=== PATIENT | male | born 1965 | race Caucasian/White ===

== ENCOUNTER 2020-05-04 09:25 | Inpatient (IN) ==
[2020-05-04] MEDS ORDERED: SODIUM CHLORIDE 0.9% 1000ML 1,000 ML IV STA (09:35)
[2020-05-04] MEDS ORDERED: PANTOPRAZOLE BOLUS/DRIP 1 EA IV STA (09:44)
[2020-05-04] MEDS ORDERED: PANTOprazole 80 MG in DEXTROSE 5% 100 ML IV ONE (09:44)
[2020-05-04] MEDS ORDERED: FAMOTIDINE 20MG IV PUSH 20 MG/5 ML SYR IV STA (09:44)
--- NOTE | 2020-05-04 09:44 | Emergency Department Note ---
Impression & Plan Gastrointestinal bleeding, upper ED Provider Note INFORMANT: Patient ED PROVIDER(S): Rey Mabry MD CHIEF COMPLAINT: Vomiting blood PLAN: Disposition: Admitted Condition: Good MEDICAL DECISION MAKING: Patient presented complaining of acute hematemesis. IV was established. He was hydrated. He was started on IV Pepcid and Protonix. Patient was also given Dilaudid and Zofran for pain. He felt much better on reassessment. Blood work reveals a slight anemia on CBC. Chemistry panel reveals mild elevation of BUN. The patient underwent CT imaging and this revealed mild hyperemia at the GE junction. No perforations or obstruction noted. Advancing cancer noted. I did discuss this with the patient. He will need further management in the hospital. Consultation was made with [facility] GI as well as [facility] internal medicine. The patient was evaluated in the ER and admitted. Triage Nursing notes reviewed and agree them. Additional history obtained from patient's Vital Signs: reviewed and remarkable for no significant abnormalities Differential diagnosis: Tameka-Gabriel tear, esophagitis, peptic ulcer disease, variceal bleed, gastritis, Diverticulosis, AVM, coagulopathy, colitis, inflammatory bowel disease, malignancy, epistaxis, fissure, hemorrhoids, as well as other pathologies. Diagnostics interpreted by me: ECG: Twelve-lead ECG reveals a normal sinus rhythm at 73 bpm. There is a RSR prime pattern present. No ST elevation or depression. No PACs or PVCs. Normal axis and QRS duration. Cardiac Monitoring: Cardiac monitoring ordered by me: The patient was placed on continuous cardiac monitoring and observed. It revealed a normal sinus rhythm at 70 beats per minute without ectopy or evidence of dysrhythmia. Imaging studies: CT scan of the abdomen pelvis as noted above. I refer you to the EMR for f urther details. Consultation(s): [facility] hospitalist service. The patient will be admitted by . [facility] gastroenterology. Patient was evaluated in the ER by NAHOMI Dwyer HPI: The patient is a 55 year old male who presents to the Emergency Room with complaints of vomiting blood. This started 4 days ago and is worsening. Called PCP and directed to ER. The patient also notes the following associated symptoms, nausea, upper abdominal pain. The patient has found no relieving factors. Current pain is rated as 8/10. Pt denies LOC, headache, fevers, chills, diaphoresis, visual changes, neck pain, chest pain, breathing difficulties, back pain, melena, hematochezia, urinary symptoms, numbness, weakness, lymphadenopathy, rash, or other complaints. ROS: See above HPI for pertinent positives & negatives. A total of 10 systems reviewed and were otherwise negative. PAST MEDICAL HISTORY:See Below, esophageal cancer PAST SURGICAL HISTORY:See Below, mediport FAMILY HISTORY:See Below SOCIAL HISTORY:See Below, HOME MEDICATIONS:See Below ALLERGIES:See Below VITALS:See Below PHYSICAL EXAMINATION: GENERAL: Awake, alert, well-appearing, in no distress HENT: Normocephalic, atraumatic. Oropharynx unremarkable. EYES: Normal conjunctiva. Sclera non-icteric. NECK: Inspection normal. Non-tender. Supple. No nuchal rigidity. FROM. No masses. RESPIRATORY: Clear to auscultation. No wheezes. No rales. Normal respiratory effort. CARDIAC: Normal rate. Normal rhythm. No murmurs. No rubs. Extremities warm and well perfused. Pulses equal. No JVD. GI: Soft, non-distended. Epigastric tenderness to palpation. No rebound or guarding. No masses. RECTAL: Deferred. MUSCULOSKELETAL: Atraumatic. Chest examination reveals no tenderness, mediport in Right upper. The back is symmetrical on inspection without obvious abnormality. There is no CVA tenderness to palpation. No joint edema. LOWER EXTREMITIES: Calves are equal size bilaterally and non-tender. No edema. No discoloration. NEURO: Normal sensorium. No sensory or motor deficits noted. SKIN: No rash or jaundice noted. 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 Surgical History History of inguinal hernia repair Family History Other Alzheimer disease Social History Hx Alcohol Use: Yes Hx Substance Use: Yes Feels Safe at Home: Yes Allergies Allergies Allergy/AdvReac Type Severity Reaction Status Date / Time No Known Allergies Allergy Unverified 05/04/20 10:37 Home Meds Home Medications Medication Instructions Recorded Confirmed No Known Home Medications 05/04/20 05/04/20 Results & Data (ED) Vital Signs Vital Signs - 24 hr 05/04/20 09:30 05/04/20 09:44 05/04/20 09:55 Temperature 36.7 C Temperature Source Oral Pulse Rate 96 H 73 79 Pulse Rate [Left] 76 Pulse Rate from SpO2 Sensor 76 Pulse Rhythm Regular Respiratory Rate 18 24 15 Respiratory Effort / Characteristics Non-Labored Non-Labored Spontaneous Respiratory Depth Normal Normal Respiratory Pattern Regular Blood Pressure 127/75 104/81 Blood Pressure [Right Arm] 104/81 Blood Pressure Mean 92 85 Blood Pressure Mean [Right Arm] 88 Blood Pressure Position Sitting Blood Pressure Position [Right Arm] Lying Pulse Oximetry 99 98 Oxygen Delivery Method Room Air Room Air Sepsis Recent Fever Within 48 Hours No Sepsis New/Unexplained Change in Mental Status No Sepsis Action Taken by Nursing No Action Required 05/04/20 10:00 05/04/20 10:30 05/04/20 10:53 Temperature Temperature Source Pulse Rate 71 63 Pulse Rate [Left] 64 Pulse Rate from SpO2 Sensor 71 62 Pulse Rhythm Respiratory Rate 17 17 16 Respiratory Effort / Characteristics Non-Labored Spontaneous Respiratory Depth Normal Respiratory Pattern Blood Pressure Blood Pressure [Right Arm] 113/78 Blood Pressure Mean Blood Pressure Mean [Right Arm] 89 Blood Pressure Position Blood Pressure Position [Right Arm] Lying Pulse Oximetry 99 95 95 Oxygen Delivery Method Room Air Sepsis Recent Fever Within 48 Hours Sepsis New/Unexplained Change in Mental Status Sepsis Action Taken by Nursing 05/04/20 10:54 05/04/20 11:07 05/04/20 11:30 Temperature Temperature Source Pulse Rate 63 74 59 L Pulse Rate [Left] Pulse Rate from SpO2 Sensor 63 73 59 L Pulse Rhythm Respiratory Rate 15 16 15 Respiratory Effort / Characteristics Respiratory Depth Respiratory Pattern Blood Pressure 113/78 Blood Pressure [Right Arm] Blood Pressure Mean 82 Blood Pressure Mean [Right Arm] Blood Pressure Position Blood Pressure Position [Right Arm] Pulse Oximetry 98 99 97 Oxygen Delivery Method Sepsis Recent Fever Within 48 Hours Sepsis New/Unexplained Change in Mental Status Sepsis Action Taken by Nursing 05/04/20 12:00 05/04/20 12:30 05/04/20 13:00 Temperature Temperature Source Pulse Rate 60 60 72 Pulse Rate [Left] Pulse Rate from SpO2 Sensor 59 L 59 L 69 Pulse Rhythm Respiratory Rate 16 15 12 Respiratory Effort / Characteristics Respiratory Depth Respiratory Pattern Blood Pressure Blood Pressure [Right Arm] Blood Pressure Mean Blood Pressure Mean [Right Arm] Blood Pressure Position Blood Pressure Position [Right Arm] Pulse Oximetry 99 98 99 Oxygen Delivery Method Sepsis Recent Fever Within 48 Hours Sepsis New/Unexplained Change in Mental Status Sepsis Action Taken by Nursing 05/04/20 13:08 05/04/20 13:30 05/04/20 14:00 Temperature Temperature Source Pulse Rate 63 73 73 Pulse Rate [Left] Pulse Rate from SpO2 Sensor 63 73 74 Pulse Rhythm Respiratory Rate 13 13 15 Respiratory Effort / Characteristics Respiratory Depth Respiratory Pattern Blood Pressure 117/87 101/78 104/77 Blood Pressure [Right Arm] Blood Pressure Mean 93 87 90 Blood Pressure Mean [Right Arm] Blood Pressure Position Blood Pressure Position [Right Arm] Pulse Oximetry 100 99 98 Oxygen Delivery Method Room Air Room Air Sepsis Recent Fever Within 48 Hours Sepsis New/Unexplained Change in Mental Status Sepsis Action Taken by Nursing 05/04/20 14:30 05/04/20 15:00 05/04/20 15:30 Temperature Temperature Source Pulse Rate 59 L 60 61 Pulse Rate [Left] Pulse Rate from SpO2 Sensor 60 61 61 Pulse Rhythm Respiratory Rate 14 15 13 Respiratory Effort / Characteristics Respiratory Depth Respiratory Pattern Blood Pressure 116/79 108/77 Blood Pressure [Right Arm] Blood Pressure Mean 83 81 Blood Pressure Mean [Right Arm] Blood Pressure Position Blood Pressure Position [Right Arm] Pulse Oximetry 97 97 98 Oxygen Delivery Method Sepsis Recent Fever Within 48 Hours Sepsis New/Unexplained Change in Mental Status Sepsis Action Taken by Nursing Laboratory Data Result diagrams: 05/04/20 09:40 05/04/20 09:40 Lab Results 05/04/20 05/04/20 05/04/20 Range/Units 09:40 09:40 09:40 WBC 6.03 (4.8-10.8) K/uL RBC 4.05 L (4.7-6.1) M/uL Hgb 12.6 L (14.0-18.0) g/dL Hct 36.0 L (42-52) % MCV 88.9 (80-100) fL MCH 31.1 (25-34) pg MCHC 35.0 (32-36) g/dL RDW Std Deviation 45.0 (36.4-46.3) fL RDW Coeff of Amy 13.7 (11.5-14.5) % Plt Count 260 (130-400) K/uL MPV 9.3 (7.4-10.4) fL Immature Gran % (Auto) 0.2 % Neut % (Auto) 64.9 % Lymph % (Auto) 21.7 % [place] % (Auto) 11.8 % Eos % (Auto) 0.7 % Baso % (Auto) 0.7 % Neut # (Auto) 3.92 (1.4-6.5) K/uL Lymph # (Auto) 1.31 (1.2-3.4) K/uL [place] # (Auto) 0.71 H (0.11-0.59) K/uL Eos # (Auto) 0.04 (0-0.5) K/uL Baso # (Auto) 0.04 (0-0.2) K/uL Immature Gran # (Auto) 0.01 (0.00-0.02) K/uL PT 11.4 (9.0-12.0) Seconds INR 1.1 (0.9-1.1) APTT 29.1 (21.0-31.0) Seconds PTT Ratio 1.0 Sodium (136-145) mmol/L Potassium (3.5-5.1) mmol/L Chloride (98-107) mmol/L Carbon Dioxide (21-32) mmol/L Anion Gap (3-11) BUN (7-18) mg/dl Creatinine (0.6-1.4) mg/dl Est Cr Clr Drug Dosing Est GFR ( Amer) Est GFR (Non-Af Amer) BUN/Creatinine Ratio (10-20) Glucose (70-99) mg/dl Calcium (8.5-10.1) mg/dl Total Bilirubin (0.2-1) mg/dl AST (15-37) U/L ALT (12-78) U/L Alkaline Phosphatase (45-117) U/L Total Protein (6.4-8.2) gm/dl Albumin (3.4-5.0) gm/dl Globulin (2.5-4.0) gm/dl Albumin/Globulin Ratio (0.9-2) Blood Type O Positive Antibody Screen NEGATIVE 05/04/20 Range/Units 09:40 WBC (4.8-10.8) K/uL RBC (4.7-6.1) M/uL Hgb (14.0-18.0) g/dL Hct (42-52) % MCV (80-100) fL MCH (25-34) pg MCHC (32-36) g/dL RDW Std Deviation (36.4-46.3) fL RDW Coeff of Amy (11.5-14.5) % Plt Count (130-400) K/uL MPV (7.4-10.4) fL Immature Gran % (Auto) % Neut % (Auto) % Lymph % (Auto) % [place] % (Auto) % Eos % (Auto) % Baso % (Auto) % Neut # (Auto) (1.4-6.5) K/uL Lymph # (Auto) (1.2-3.4) K/uL [place] # (Auto) (0.11-0.59) K/uL Eos # (Auto) (0-0.5) K/uL Baso # (Auto) (0-0.2) K/uL Immature Gran # (Auto) (0.00-0.02) K/uL PT (9.0-12.0) Seconds INR (0.9-1.1) APTT (21.0-31.0) Seconds PTT Ratio Sodium 138 (136-145) mmol/L Potassium 3.7 (3.5-5.1) mmol/L Chloride 104 (98-107) mmol/L Carbon Dioxide 26 (21-32) mmol/L Anion Gap 9.0 (3-11) BUN 22 H (7-18) mg/dl Creatinine 0.99 (0.6-1.4) mg/dl Est Cr Clr Drug Dosing Not Reportable Est GFR ( Amer) 99.0 Est GFR (Non-Af Amer) 85.4 BUN/Creatinine Ratio 22.4 H (10-20) Glucose 100 H (70-99) mg/dl Calcium 9.1 (8.5-10.1) mg/dl Total Bilirubin 1.4 H (0.2-1) mg/dl AST 15 (15-37) U/L ALT 19 (12-78) U/L Alkaline Phosphatase 45 (45-117) U/L Total Protein 7.0 (6.4-8.2) gm/dl Albumin 3.8 (3.4-5.0) gm/dl Globulin 3.2 (2.5-4.0) gm/dl Albumin/Globulin Ratio 1.2 (0.9-2) Blood Type Antibody Screen Administered Medications Hydromorphone HCl (Hydromorphone Inj 0.5 Mg/0.5 Ml Syr) 0.5 mg IV Q15M PRN PRN Reason: Pain Stop: 05/18/20 09:44 Last Admin: 05/04/20 13:37 Dose: 0.5 mg Documented by: [id number] Admin: 05/04/20 09:53 Dose: 0.5 mg Documented by: [id number] Sodium Chloride (Nss 1000ml) 1,000 mls @ 125 mls/hr IV .Q8H STA Stop: 05/04/20 17:34 Last Admin: 05/04/20 09:53 Dose: 125 mls/hr Documented by: [id number] Pantoprazole Sodium 40 mg/ (Dextrose) 100 mls @ 20 mls/hr IV Q5H JUAN Stop: 06/03/20 09:59 Last Admin: 05/04/20 10:32 Dose: 8 mg/hr, 20 mls/hr Documented by: [id number] Discontinued Medications Sodium Chloride (Nss) 500 mls @ 999 mls/hr IV .Q31M JUAN Stop: 05/04/20 10:15 Last Infusion: 05/04/20 10:32 Dose: 0 mls/hr Documented by: [id number] Admin: 05/04/20 09:53 Dose: 999 mls/hr Documented by: [id number] Famotidine (Pepcid 20mg Iv Push) 20 mg in 5 mls @ 2.5 mls/min IV NOW STA Stop: 05/04/20 09:45 Last Admin: 05/04/20 09:53 Dose: 2.5 mls/min Documented by: [id number] Pantoprazole Sodium (Protonix Bolus/Drip) 0 mls @ 1 mls/hr IV ONE STA Stop: 05/04/20 09:45 Last Admin: 05/04/20 10:32 Dose: 1 mls/hr Documented by: [id number] Pantoprazole Sodium 80 mg/ (Dextrose) 120 mls @ 400 mls/hr IV NOW ONE Stop: 05/04/20 10:01 Last Infusion: 05/04/20 10:32 Dose: 0 mls/hr Documented by: [id number] Admin: 05/04/20 10:09 Dose: 400 mls/hr Documented by: [id number] Ioversol (Ioversol 100ml) 93 ml IV ONCE ONE Stop: 05/04/20 11:01 Last Admin: 05/04/20 11:02 Dose: 93 ml Documented by: [id number] Ondansetron HCl (Ondansetron Inj 2 Mg/Ml 2 Ml Vial) 4 mg IV NOW STA Stop: 05/04/20 09:46 Last Admin: 05/04/20 09:53 Dose: 4 mg Documented by: [id number] Discharge Plan Visit Data Chief Complaint: Vomiting Stated Complaint: VOMITING ED Provider: Rey Mabry Discharge Problem: Gastrointestinal bleeding, upper Patient Disposition: Admitted As Inpatient Discharge Instructions Interventions: ED Discharge Assessment Last Done: 05/04/20 15:32
[2020-05-04] MEDS ORDERED: ONDANSETRON INJ 2 MG/ML 2 ML VIAL IV STA (09:45)
[2020-05-04] MEDS ORDERED: SODIUM CHLORIDE 0.9% 500 ML IV SCH (09:45)
[2020-05-04] MEDS: HYDROmorphone INJ 0.5 MG/0.5 ML SYR IV PRN ×4 (09:53→23:13)
[2020-05-04 09:57] LABS: Basophils # (auto) 0.04 K/uL (0-0.2); Basophils % (auto) 0.7 %; Eosinophils # (auto) 0.04 K/uL (0-0.5); Eosinophils % (auto) 0.7 %; Hemoglobin 12.6 g/dL (14.0-18.0); Immature Granulocytes # (auto) 0.01 K/uL (0.00-0.02); Immature Granulocytes % (auto) 0.2 %; Lymphocytes # (auto) 1.31 K/uL (1.2-3.4); Lymphocytes % (auto) 21.7 %; Mean Corpuscular Hemoglobin 31.1 pg (25-34); Mean Corpuscular Volume 88.9 fL (80-100); Mean Platelet Volume 9.3 fL (7.4-10.4); Monocytes # (auto) 0.71 K/uL (0.11-0.59); Monocytes % (auto) 11.8 %; Neutrophils # (auto) 3.92 K/uL (1.4-6.5); Neutrophils % (auto) 64.9 %; Platelet Count 260 K/uL (130-400); RDW Coefficient of Variation 13.7 % (11.5-14.5); Red Blood Count 4.05 M/uL (4.7-6.1); White Blood Count 6.03 K/uL (4.8-10.8)
[2020-05-04 10:10] LABS: INR 1.1 (0.9-1.1); Partial Thromboplastin Time 29.1 Seconds (21.0-31.0); Prothrombin Time 11.4 Seconds (9.0-12.0)
[2020-05-04 10:27] LABS: Alanine Aminotransferase 19 U/L (12-78); Albumin Level 3.8 gm/dl (3.4-5.0); Aspartate Aminotransferase 15 U/L (15-37); BUN Creatinine Ratio 22.4 (10-20); Blood Urea Nitrogen 22 mg/dl (7-18); Calcium 9.1 mg/dl (8.5-10.1); Carbon Dioxide 26 mmol/L (21-32); Chloride 104 mmol/L (98-107); Est GFR (Non-African American) 85.4; Glucose 100 mg/dl (70-99); Potassium 3.7 mmol/L (3.5-5.1); Sodium 138 mmol/L (136-145)
[2020-05-04 10:30] LABS: Albumin Globulin Ratio 1.2 (0.9-2); Alkaline Phosphatase 45 U/L (45-117); Bilirubin,Total 1.4 mg/dl (0.2-1); Globulin 3.2 gm/dl (2.5-4.0)
[2020-05-04] MEDS: PANTOprazole 40 MG in DEXTROSE 5% 100 ML IV SCH ×3 (10:32→21:41)
[2020-05-04] MEDS ORDERED: IOVERSOL 100ml IV ONE (11:00)
--- NOTE | 2020-05-04 12:00 | CT Scan Report ---
CT SCAN OF THE ABDOMEN AND PELVIS WITH IV CONTRAST CLINICAL HISTORY: Epigastric abdominal pain. Upper GI bleeding. History of esophageal cancer. COMPARISON STUDY: PET CT dated 12/25/2019. TECHNIQUE: Following the IV administration of 93 cc of Optiray 320, CT scan of the abdomen and pelvi s is performed from the lung bases to the proximal femora. Images are reviewed in the axial, sagittal , and coronal planes. IV contrast was administered without complication. A dose lowering technique wa s utilized adhering to the principles of ALARA. CT DOSE: 258.97 mGy.cm FINDINGS: Lung bases: The heart is normal in size and without pericardial effusion. There is evidence of multif ocal pulmonary and pleural-based metastatic disease at both lung bases with greater than 20 lesions i dentified. No airspace consolidation is seen typical for pneumonia and no pleural effusion is identif ied. A conglomerate of lesions in the right lower lobe on image #19 measures up to 3.5 cm in aggregat e dimension. A mass lesion is partially visualized in the distal esophagus. Postoperative change is s uggested at the gastroesophageal junction with mucosal thickening and hyperemia. Liver: The contrast-enhanced liver is normal in size, contour, and attenuation. Fatty infiltration is seen adjacent to the falciform ligament. There is no intrahepatic biliary ductal dilatation. The hep atic veins and portal veins are patent. There are least 4 subtle low attenuation hepatic lesions iden tified which are concerning for metastatic disease. The largest is seen on image #79 and measures 1.0 cm. Gallbladder: Unremarkable. Spleen: Normal in size and attenuation. Pancreas: Unremarkable. Adrenal glands: Unremarkable. Kidneys: The contrast enhanced kidneys are normal in size and without hydronephrosis. The kidneys enh ance symmetrically. Cortical scarring is seen in the right upper pole. There are punctate bilateral n onobstructing renal calculi. Abdominal vasculature: The abdominal aorta is normal in course and caliber noting moderate to advance d atherosclerotic calcification. Bowel: There is no bowel obstruction. Moderate fecal retention is seen throughout the colon. The appe ndix is not visualized. Peritoneum: There is no intraperitoneal free air or abdominal ascites. Lymphadenopathy: Enlarged retrocrural and retroperitoneal lymph nodes are again identified. Ill-defin ed retrocrural soft tissue density on image #81 likely represents metastatic disease. A node adjacent to the right adrenal gland on image #90 measures at least 2 cm. A retroaortic node on image #140 alvaro sures 2.1 x 1.0 cm. Pelvic viscera: The prostate gland is enlarged and heterogeneous noting median lobe hypertrophy. The bladder wall is thickened and trabeculated indicating chronic outlet obstruction. Findings suggest pr evious right inguinal herniorrhaphy. Skeletal structures: The skeletal structures are osteopenic. No lytic or blastic lesions are seen. Soft tissues: The patient is cachectic. IMPRESSION: 1. An esophageal mass lesion is partially visualized. 2. Postoperative change with mucosal thickening and hyperemia is noted at the gastroesophageal juncti on. This may be treatment related and clinical correlation will be required. 3. Findings of pulmonary pleural-based metastatic disease appears progressed as compared to the 020 head examination. 4. There are at least 4 low attenuation hepatic lesions measure up to 1.0 cm. These were not clearly seen previously and are concerning for developing hepatic metastatic disease. 5. Retrocrural and retroperitoneal lymphadenopathy is consistent with metastatic disease. 6. Punctate bilateral nonobstructing renal calculi. 7. Marked prostatomegaly. 8. Additional findings as above. ACT 112: Negative or not required by law. Electronically signed by: Man Uribe M.D. 05/04/2020 11:48 AM
--- NOTE | 2020-05-04 12:26 | Electrocardiogram Report ---
Test Reason : Blood Pressure : / mmHG Vent. Rate : 073 BPM Atrial Rate : 073 BPM P-R Int : 160 ms QRS Dur : 088 ms QT Int : 392 ms P-R-T Axes : 073 078 071 degrees QTc Int : 431 ms Normal sinus rhythm with sinus arrhythmia RSR' or QR pattern in V1 suggests right ventricular conduction delay Otherwise Normal ECG No previous ECGs available Confirmed by Boni Ramsey ([id number]) on 05/04/2020 12:26:18 PM Referred By: Confirmed By:Boni Ramsey
--- NOTE | 2020-05-04 13:35 | History & Physical Report ---
Date of Service May 04, 2020 Assessment & Plan (1) Gastrointestinal bleeding, upper: This is a 55yo M with a PMH of metastatic esophageal cancer and history of kidney stones who presents with hematemesis x 5 days in setting of metastatic esophageal cancer and recent NSAID use. -Afebrile and hemodynamically stable. No leukocytosis. Hgb at baseline today at 12.6. BUN 22. Creatinine at baseline -CT abd/pelvis re-demonstrates esophageal mass and hyperemia is noted at the gastroesophageal junction as well as progressed findings of metastatic disease to lungs and multiple hepatic lesions -Evaluated by GI in ED- tentative plan for EGD during admission. 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 Garcia. Planning for repair PET-CT scan on 05/21/2020 and will follow up in clinic afterwards DVT Ppx: SCDs Code status: FULL PCP: Agnes Dispo: Observation med tele. Plan to return home once medically stable. Patient seen in collaboration with Dr. Lane. Please see addendum. History of Present Illness Chief Complaint: hemetemesis Primary Care Provider: Crow Alarcon MD This is a 55yo M with a PMH of metastatic esophageal cancer and history of kidney stones who presents with hematemesis x 5 days. Was previously on 5- Fluorouracil, Leucovorin and irinotecan combination every 2 weeks who elected to hold the chemotherapy treatment in March to focus on holistic approach. Has been feeling well until the last five days, tolerating a mostly liquid diet of bone broth and soft vegetavles like squash. Over the past 5 days, patient developed a few episodes of vomiting bright red blood. Occurred around the time he took 400mg NSAIDs x 2 for back pain. Most significant episode occurred last night with a larger amount of bright red blood as well as some dark red. Discussed this with ED provider friend who urged him to come to the ER but patient wanted to wait until this morning. Endorses some worsened diffuse abdominal pain. No melena or hematochezia. No fever, chills, lightheadedness, chest pain, SOB, dysuria or hematuria. In ED, patient is afebrile and hemodynamically stable. No leukocytosis. Hgb at baseline today at 12.6. BUN 22. Creatinine at baseline. CT abd/pelvis re- demonstrates esophageal mass and hyperemia is noted at the gastroesophageal junction as well as progressed findings of metastatic disease to lungs and multiple hepatic lesions. Allergies Allergy/AdvReac Type Severity Reaction Status Date / Time No Known Allergies Allergy Unverified 05/04/20 10:37 Home Medications Home Medications Medication Instructions Recorded Confirmed Type No Known Home Medications 05/04/20 05/04/20 History Past Med/Surg History Medical History History of kidney stones History of rheumatoid arthritis Metastatic adenocarcinoma to esophagus Surgical History History of inguinal hernia repair Family History Other Alzheimer disease Social History Smoking Status: Current every day smoker Second Hand Exposure: No; Do You Dip or Chew Tobacco: No; Tobacco Cessation Education Requested by Patient: No Hx Alcohol Use: No Hx Substance Use: Yes Last Used Substance: Days (ago) Preferred Language: Urdu Communication Ability: Effective 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 Physical Exam Physical Exam: General Appearance: vitals as above, thin, chronically ill appearing, pleasant, conversing easily Head: normocephalic, atraumatic Eyes: normal inspection, PERRL, conjunctivae normal, anicteric sclerae ENT: external ear and nose normal, oropharynx normal Neck: normal visual inspection, trachea midline, no thyromegaly Respiratory: normal respiratory effort, lungs clear to auscultation, no wheeze, rales, rhonchi. No accessory muscle use Cardiovascular: regular rate, rhythm, no murmur appreciated, normal peripheral pulses, no BLE edema. Vessels: no JVD Chest: + port visualized R chest wall Abdomen/GI: normal bowel sounds, soft, nontender, no hepatosplenomegaly Extremities/Musculoskeletal: no cyanosis or clubbing, extremities motor strength 5/5 Neurologic: PERRL, EOMI, accommodation nl, no face palsy, no dysarthria, CN's II-XI intact bilaterally and moves all extremities Psychiatric: A+Ox3, euthymic affect Skin: no rashes, normal color, warm/dry Results & Data Results & Data ([facility]) Vital Signs (Past 12 Hours) Vital Signs Temp Pulse Pulse Resp BP BP Pulse Ox 05/04/20 13:00 72 12 99 05/04/20 12:30 60 15 98 05/04/20 12:00 60 16 99 05/04/20 11:30 59 L 15 97 05/04/20 11:07 74 16 99 05/04/20 10:54 63 15 113/78 98 05/04/20 10:53 64 16 113/78 95 05/04/20 10:30 63 17 95 05/04/20 10:00 71 17 99 05/04/20 09:55 79 76 15 104/81 104/81 98 05/04/20 09:44 73 24 05/04/20 09:30 36.7 C 96 H 18 127/75 99 Laboratory Results Short CBC 05/04/20 05/04/20 05/04/20 Range/Units 09:40 09:40 09:40 WBC 6.03 (4.8-10.8) K/uL RBC 4.05 L (4.7-6.1) M/uL Hgb 12.6 L (14.0-18.0) g/dL Hct 36.0 L (42-52) % MCV 88.9 (80-100) fL MCH 31.1 (25-34) pg MCHC 35.0 (32-36) g/dL RDW Std Deviation 45.0 (36.4-46.3) fL RDW Coeff of Amy 13.7 (11.5-14.5) % Plt Count 260 (130-400) K/uL MPV 9.3 (7.4-10.4) fL Immature Gran % (Auto) 0.2 % Neut % (Auto) 64.9 % Lymph % (Auto) 21.7 % [place] % (Auto) 11.8 % Eos % (Auto) 0.7 % Baso % (Auto) 0.7 % Neut # (Auto) 3.92 (1.4-6.5) K/uL Lymph # (Auto) 1.31 (1.2-3.4) K/uL [place] # (Auto) 0.71 H (0.11-0.59) K/uL Eos # (Auto) 0.04 (0-0.5) K/uL Baso # (Auto) 0.04 (0-0.2) K/uL Immature Gran # (Auto) 0.01 (0.00-0.02) K/uL PT 11.4 (9.0-12.0) Seconds INR 1.1 (0.9-1.1) APTT 29.1 (21.0-31.0) Seconds PTT Ratio 1.0 Sodium (136-145) mmol/L Potassium (3.5-5.1) mmol/L Chloride (98-107) mmol/L Carbon Dioxide (21-32) mmol/L Anion Gap (3-11) BUN (7-18) mg/dl Creatinine (0.6-1.4) mg/dl Est Cr Clr Drug Dosing Est GFR ( Amer) Est GFR (Non-Af Amer) BUN/Creatinine Ratio (10-20) Glucose (70-99) mg/dl Calcium (8.5-10.1) mg/dl Total Bilirubin (0.2-1) mg/dl AST (15-37) U/L ALT (12-78) U/L Alkaline Phosphatase (45-117) U/L Total Protein (6.4-8.2) gm/dl Albumin (3.4-5.0) gm/dl Globulin (2.5-4.0) gm/dl Albumin/Globulin Ratio (0.9-2) Blood Type O Positive Antibody Screen NEGATIVE 05/04/20 Range/Units 09:40 WBC (4.8-10.8) K/uL RBC (4.7-6.1) M/uL Hgb (14.0-18.0) g/dL Hct (42-52) % MCV (80-100) fL MCH (25-34) pg MCHC (32-36) g/dL RDW Std Deviation (36.4-46.3) fL RDW Coeff of Amy (11.5-14.5) % Plt Count (130-400) K/uL MPV (7.4-10.4) fL Immature Gran % (Auto) % Neut % (Auto) % Lymph % (Auto) % [place] % (Auto) % Eos % (Auto) % Baso % (Auto) % Neut # (Auto) (1.4-6.5) K/uL Lymph # (Auto) (1.2-3.4) K/uL [place] # (Auto) (0.11-0.59) K/uL Eos # (Auto) (0-0.5) K/uL Baso # (Auto) (0-0.2) K/uL Immature Gran # (Auto) (0.00-0.02) K/uL PT (9.0-12.0) Seconds INR (0.9-1.1) APTT (21.0-31.0) Seconds PTT Ratio Sodium 138 (136-145) mmol/L Potassium 3.7 (3.5-5.1) mmol/L Chloride 104 (98-107) mmol/L Carbon Dioxide 26 (21-32) mmol/L Anion Gap 9.0 (3-11) BUN 22 H (7-18) mg/dl Creatinine 0.99 (0.6-1.4) mg/dl Est Cr Clr Drug Dosing Not Reportable Est GFR ( Amer) 99.0 Est GFR (Non-Af Amer) 85.4 BUN/Creatinine Ratio 22.4 H (10-20) Glucose 100 H (70-99) mg/dl Calcium 9.1 (8.5-10.1) mg/dl Total Bilirubin 1.4 H (0.2-1) mg/dl AST 15 (15-37) U/L ALT 19 (12-78) U/L Alkaline Phosphatase 45 (45-117) U/L Total Protein 7.0 (6.4-8.2) gm/dl Albumin 3.8 (3.4-5.0) gm/dl Globulin 3.2 (2.5-4.0) gm/dl Albumin/Globulin Ratio 1.2 (0.9-2) Blood Type Antibody Screen BMP 05/04/20 09:40 Sodium 138 Potassium 3.7 Chloride 104 Carbon Dioxide 26 BUN 22 H Creatinine 0.99 Glucose 100 H Calcium 9.1 Liver Function 05/04/20 Range/Units 09:40 Total Bilirubin 1.4 H (0.2-1) mg/dl AST 15 (15-37) U/L ALT 19 (12-78) U/L Alkaline Phosphatase 45 (45-117) U/L Albumin 3.8 (3.4-5.0) gm/dl Diagnostic Findings Ct abd/pelvis: IMPRESSION: 1. An esophageal mass lesion is partially visualized. 2. Postoperative change with mucosal thickening and hyperemia is noted at the gastroesophageal junction. This may be treatment related and clinical correlation will be required. 3. Findings of pulmonary pleural-based metastatic disease appears progressed as compared to the 12/25/2019 head examination. 4. There are at least 4 low attenuation hepatic lesions measure up to 1.0 cm. These were not clearly seen previously and are concerning for developing hepatic metastatic disease. 5. Retrocrural and retroperitoneal lymphadenopathy is consistent with metastatic disease. 6. Punctate bilateral nonobstructing renal calculi. 7. Marked prostatomegaly. 8. Additional findings as above. Supervising Physician Co-Signing Physician Notes Pt was seen and examined. Agreed with Melanie MÉNDEZ exam, assessment and plan. 55 yo M with a PMH of metastatic esophageal cancer, kidney stones present with hematemesis. Pt recently said that he started holistic approach for his metastatic esophageal cancer by choosing to hold on any chemotherapy treatment. he said that about 5 days ago he developed few episodes of bright red blood vomiting. He said that around the time he had the hematemesis that he took 2 tabs of NSAID. Pt said that last night that he had another episode of hematemesis. CT abd/pelvis showed an esophageal mass lesion. pulmonary pleural- based metastatic disease appears progressed as compared to the 12/25/2019 head examination. There are at least 4 low attenuation hepatic lesions measure up to 1.0 cm. These were not clearly seen previously and are concerning for developing hepatic metastatic disease. Retrocrural and retroperitoneal lymphadenopathy is consistent with metastatic disease. Pt said that he feels ok. CT report reviewed with patient and a copy printed for the patient. Pt said that he has an appointment with his oncologist Dr. Garcia next week and will address that with him. He said that his pain is well control now with the dilaudid. Hgb on admission 12.6. Gastro consulted. Starting on IV PPI drip. Clear liquid diet. Will make NPO after midnight for tentative scope. Will monitor H/H. Continue antiemetic. Will avoid NSAIDs. Code status discussed with patient and would like to be Full code, but does not want to stay on life support for too long if he codes. Will continue monitor closely. MD Domingo
--- NOTE | 2020-05-04 13:57 | Gastrointestinal Consultation ---
Date of Consultation May 04, 2020 Assessment & Plan (1) Gastrointestinal bleeding, upper: 55 year old male with history of metastatic esophageal (5-Fluorouracil, Leucovorin and irinotecan combination every 2 weekly) who elected to hold the chemotherapy treatment in March and focus on holistic approach at this time who presents to the ED for evaluation of hematemesis, hemodynamically stable, HGB 12.6. DDX discussed. Admit for ongoing management Analgesia PRN Antiemetics PRN Hold NSAIDs Start IV PPI bolus and drip Trend HGB Monitor and document GI output Transfuse PRN NPO after midnight Tentative plan for EGD during admission Thank you for allowing us to participate in the care of this patient. Please call with any acute changes, questions or concerns. Please see addendum below with additional recommendation from my supervising physician. Supervising Physician Co-Signing Physician Notes I have personally seen and examined the patient with NAHOMI Dwyer. Her note reflects my exam and findings. I agree with her impression and plan. Most likely tumor bleeding. Endoscopy would not add to his care at this point. Follow H/H. BID PPI. Sudhir Ramon M.D. History of Present Illness Reason for Consultation: hematemesis Requesting Physician: HONEY Garcia Attending Physician: Jose History of Present Illness 55 year old male with history of metastatic esophageal (5-Fluorouracil, Leucovorin and irinotecan combination every 2 weekly) who elected to hold the chemotherapy treatment in March and focus on holistic approach at this time who presents to the ED for evaluation of hematemesis. Pt was seen and evaluated, chart reviewed. Pt notes that he was in his typical state of health, tolerating full liquid diet up until /Monday. Had some abd discomfort. Took 400 mg advil and some Aleve. 12 hours later developed nausea/vomiting. Noted hematemesis at that time. Had another bout of vomiting which appeared to have more blood. Last evening had significant episode of hematemesis w/ BRB and discussed his symptoms with a friend who was a physician who urged ED care, however, noted he wanted to wait until the AM. 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 He does have some epigastric discomfort. Chronic constipation maintained on enema. No black or bloody stools. Ongoing weight loss. No fever, chills, CP, SOB. In the ED, vitals stable. Afebrile without leukocytosis. HGB today 12.6 which is stable from labs 04/29/20. No BUN elevation. Ct redemonstrates esophageal mass and metastatic disease. CTAP 03/2020: An esophageal mass lesion is partially visualized.Postoperative change with mucosal thickening and hyperemia is noted at the gastroesophageal junction. This may be treatment related and clinical correlation will be required.Findings of pulmonary pleural-based metastatic disease appears progressed as compared to the 12/25/2019 head examinationThere are at least 4 low attenuation hepatic lesions measure up to 1.0 cm. These were not clearly seen previously and are concerning for developing hepatic metastatic disease Retrocrural and retroperitoneal lymphadenopathy is consistent with metastatic disease. Punctate bilateral nonobstructing renal calculi.Marked prostatomegaly. EUS 2019: A mass was found in the middle third of the esophagus and in the lower third of the esophagus. A tissue diagnosis was obtained prior to this exam. This is of adenocarcinoma. This was staged T3 Nx Mx by endosonographic criteria. - There was no sign of significant pathology in the entire pancreas. - There was no evidence of significant pathology in the visualized portion of the liver. - Endosonographic images of the left adrenal gland were unremarkable. - There was no sign of significant pathology in the common bile duct. - There was no sign of significant pathology in the gallbladder. - No specimens collected. EGD 2019: Normal upper third of esophagus. - Malignant esophageal tumor was found in the middle third of the esophagus and in the lower third of the esophagus. Biopsied. - Normal stomach. - Normal examined duodenum. EGD 2018: Partially obstructing esophageal tumor was found in the middle third of the esophagus and in the lower third of the esophagus. Biopsied. - Normal stomach. - Normal examined duodenum Allergies Allergy/AdvReac Type Severity Reaction Status Date / Time No Known Allergies Allergy Unverified 05/04/20 10:37 Home Medications Home Medications Medication Instructions Recorded Confirmed Type No Known Home Medications 05/04/20 05/04/20 History Patient History Medical History (Updated 05/04/20 @ 15:03 by Melanie Garcia PA-C) History of kidney stones History of rheumatoid arthritis Metastatic adenocarcinoma to esophagus Surgical History History of inguinal hernia repair Family History Other Alzheimer disease Social History Hx Alcohol Use: Yes Hx Substance Use: Yes Feels Safe at Home: Yes Review of Systems Constitutional: + anorexia and + weight loss; no chills and no fatigue Respiratory: no cough Cardiovascular: no chest pain Gastrointestinal: + abdominal pain, + nausea and + hematemesis; no coffee ground emesis, no dysphagia (resolved for the past few months), no blood in stools and no melena Physical Exam Constitutional: + ill appearing (chronically ill appearing, thin male in no acute distress); no acute distress Neck: trachea midline Respiratory: normal respiratory effort Gastrointestinal (Abdomen): Percussion/Palpation: + abdomen tender and abdomen soft; no guarding and abdomen not rigid Skin: no rashes, warm and dry Results & Data ([facility]) Vital Signs (Past 12 Hours) Vital Signs Temp Pulse Pulse Resp BP BP Pulse Ox 05/04/20 13:00 72 12 99 05/04/20 12:30 60 15 98 05/04/20 12:00 60 16 99 05/04/20 11:30 59 L 15 97 05/04/20 11:07 74 16 99 05/04/20 10:54 63 15 113/78 98 05/04/20 10:53 64 16 113/78 95 05/04/20 10:30 63 17 95 05/04/20 10:00 71 17 99 05/04/20 09:55 79 76 15 104/81 104/81 98 05/04/20 09:44 73 24 05/04/20 09:30 36.7 C 96 H 18 127/75 99 Laboratory Results 05/04/20 05/04/20 05/04/20 Range/Units 09:40 09:40 09:40 WBC 6.03 (4.8-10.8) K/uL RBC 4.05 L (4.7-6.1) M/uL Hgb 12.6 L (14.0-18.0) g/dL Hct 36.0 L (42-52) % MCV 88.9 (80-100) fL MCH 31.1 (25-34) pg MCHC 35.0 (32-36) g/dL RDW Std Deviation 45.0 (36.4-46.3) fL RDW Coeff of Amy 13.7 (11.5-14.5) % Plt Count 260 (130-400) K/uL MPV 9.3 (7.4-10.4) fL Immature Gran % (Auto) 0.2 % Neut % (Auto) 64.9 % Lymph % (Auto) 21.7 % [place] % (Auto) 11.8 % Eos % (Auto) 0.7 % Baso % (Auto) 0.7 % Neut # (Auto) 3.92 (1.4-6.5) K/uL Lymph # (Auto) 1.31 (1.2-3.4) K/uL [place] # (Auto) 0.71 H (0.11-0.59) K/uL Eos # (Auto) 0.04 (0-0.5) K/uL Baso # (Auto) 0.04 (0-0.2) K/uL Immature Gran # (Auto) 0.01 (0.00-0.02) K/uL PT 11.4 (9.0-12.0) Seconds INR 1.1 (0.9-1.1) APTT 29.1 (21.0-31.0) Seconds PTT Ratio 1.0 Sodium 138 (136-145) mmol/L Potassium 3.7 (3.5-5.1) mmol/L Chloride 104 (98-107) mmol/L Carbon Dioxide 26 (21-32) mmol/L Anion Gap 9.0 (3-11) BUN 22 H (7-18) mg/dl Creatinine 0.99 (0.6-1.4) mg/dl Est Cr Clr Drug Dosing Not Reportable Est GFR ( Amer) 99.0 Est GFR (Non-Af Amer) 85.4 BUN/Creatinine Ratio 22.4 H (10-20) Glucose 100 H (70-99) mg/dl Calcium 9.1 (8.5-10.1) mg/dl Total Bilirubin 1.4 H (0.2-1) mg/dl AST 15 (15-37) U/L ALT 19 (12-78) U/L Alkaline Phosphatase 45 (45-117) U/L Total Protein 7.0 (6.4-8.2) gm/dl Albumin 3.8 (3.4-5.0) gm/dl Globulin 3.2 (2.5-4.0) gm/dl Albumin/Globulin Ratio 1.2 (0.9-2) Blood Type Antibody Screen 05/04/20 Range/Units 09:40 WBC (4.8-10.8) K/uL RBC (4.7-6.1) M/uL Hgb (14.0-18.0) g/dL Hct (42-52) % MCV (80-100) fL MCH (25-34) pg MCHC (32-36) g/dL RDW Std Deviation (36.4-46.3) fL RDW Coeff of Amy (11.5-14.5) % Plt Count (130-400) K/uL MPV (7.4-10.4) fL Immature Gran % (Auto) % Neut % (Auto) % Lymph % (Auto) % [place] % (Auto) % Eos % (Auto) % Baso % (Auto) % Neut # (Auto) (1.4-6.5) K/uL Lymph # (Auto) (1.2-3.4) K/uL [place] # (Auto) (0.11-0.59) K/uL Eos # (Auto) (0-0.5) K/uL Baso # (Auto) (0-0.2) K/uL Immature Gran # (Auto) (0.00-0.02) K/uL PT (9.0-12.0) Seconds INR (0.9-1.1) APTT (21.0-31.0) Seconds PTT Ratio Sodium (136-145) mmol/L Potassium (3.5-5.1) mmol/L Chloride (98-107) mmol/L Carbon Dioxide (21-32) mmol/L Anion Gap (3-11) BUN (7-18) mg/dl Creatinine (0.6-1.4) mg/dl Est Cr Clr Drug Dosing Est GFR ( Amer) Est GFR (Non-Af Amer) BUN/Creatinine Ratio (10-20) Glucose (70-99) mg/dl Calcium (8.5-10.1) mg/dl Total Bilirubin (0.2-1) mg/dl AST (15-37) U/L ALT (12-78) U/L Alkaline Phosphatase (45-117) U/L Total Protein (6.4-8.2) gm/dl Albumin (3.4-5.0) gm/dl Globulin (2.5-4.0) gm/dl Albumin/Globulin Ratio (0.9-2) Blood Type O Positive Antibody Screen NEGATIVE
[2020-05-04] MEDS ORDERED: ACETAMINOPHEN 1,000 MG/100 ML VIAL IV PRN (16:41)
[2020-05-04] MEDS ORDERED: SODIUM CHLORIDE 0.9% 1000ML 1,000 ML IV SCH (16:41)
[2020-05-04] MEDS: ONDANSETRON INJ 2 MG/ML 2 ML VIAL IV PRN (23:16)
[2020-05-05] MEDS: LACTATED RINGER'S 1,000 ML IV SCH ×2 (01:26→15:25)
[2020-05-05] MEDS: PANTOprazole 40 MG in DEXTROSE 5% 100 ML IV SCH ×5 (01:27→19:59)
[2020-05-05] MEDS: HYDROmorphone INJ 0.5 MG/0.5 ML SYR IV PRN ×6 (03:16→23:54)
[2020-05-05] MEDS: ONDANSETRON INJ 2 MG/ML 2 ML VIAL IV PRN ×3 (05:30→23:36)
[2020-05-05 07:24] LABS: Hematocrit (blood only) 29.8 % (42-52); Hemoglobin 10.3 g/dL (14.0-18.0); Mean Corpuscular Hemoglobin 30.6 pg (25-34); Mean Corpuscular Hgb Conc 34.6 g/dL (32-36); Mean Corpuscular Volume 88.4 fL (80-100); Mean Platelet Volume 9.5 fL (7.4-10.4); Platelet Count 204 K/uL (130-400); RDW Standard Deviation 45.6 fL (36.4-46.3); Red Blood Count 3.37 M/uL (4.7-6.1); White Blood Count 3.67 K/uL (4.8-10.8)
[2020-05-05 08:02] LABS: Albumin Globulin Ratio 1.2 (0.9-2); Albumin Level 3.1 gm/dl (3.4-5.0); BUN Creatinine Ratio 19.4 (10-20); Bilirubin,Total 1.2 mg/dl (0.2-1); Calcium 8.6 mg/dl (8.5-10.1); Creatinine Clr Calc Pharmacy 64.9 ml/min; Est GFR (African American) 112.6; Est GFR (Non-African American) 97.2; Globulin 2.5 gm/dl (2.5-4.0); Potassium 4.6 mmol/L (3.5-5.1); Total Protein 5.6 gm/dl (6.4-8.2)
--- NOTE | 2020-05-05 08:42 | Gastroenterology Progress Note ---
Date of Service May 05, 2020 Assessment & Plan (1) Gastrointestinal bleeding, upper: 55 year old male with history of metastatic esophageal (5-Fluorouracil, Leucovorin and irinotecan combination every 2 weekly) who elected to hold the chemotherapy treatment in March and focus on holistic approach at this time who presents to the ED for evaluation of hematemesis, hemodynamically stable, HGB 12.6. DDX discussed. Analgesia PRN Antiemetics PRN Hold NSAIDs IV PPI bolus and drip Trend HGB Monitor and document GI output Transfuse PRN Thank you for allowing us to participate in the care of this patient. Please call with any acute changes, questions or concerns. Please see addendum below with additional recommendation from my supervising physician. Admission and Anticipated Discharge Date Admission Date: May 04, 2020 Subjective Pt was seen and evaluated, chart reviewed. Feeling well, tired. Some epigastric abd pain/pressure No further nausea/vomiting No further hematemesis No black or bloody stools Review of Systems Constitutional: + anorexia and + weight loss; no chills and no fatigue Gastrointestinal: + abdominal pain, + nausea and + hematemesis; no coffee ground emesis, no dysphagia (resolved for the past few months), no blood in stools and no melena Physical Exam Constitutional: + ill appearing (chronically ill appearing, thin male in no acute distress); no acute distress Neck: trachea midline Respiratory: normal respiratory effort Gastrointestinal (Abdomen): Percussion/Palpation: + abdomen tender and abdomen soft; no guarding and abdomen not rigid Skin: no rashes, warm and dry Results & Data ([facility] [place]) Vital Signs (Past 12 Hours) Vital Signs Temp Pulse Pulse Resp BP BP Pulse Ox 05/05/20 07:07 36.7 C 61 16 116/75 100 05/05/20 03:13 36.6 C 64 20 128/74 99 05/04/20 23:57 63 05/04/20 23:06 36.9 C 67 19 109/72 98
[2020-05-05 16:04] LABS: Hemoglobin 10.5 g/dL (14.0-18.0)
--- NOTE | 2020-05-05 16:57 | Hospitalist Progress Note ---
Date of Service May 05, 2020 Assessment & Plan (1) Gastrointestinal bleeding, upper: Patient is a 55-year-old male with H/O Metastatic Esophageal Cancer, nephrolithiasis and other medical problems presents with history of hematemesis x 5 days and admits to recent NSAID use. Upper gastrointestinal bleeding H/O Metastatic Esophageal Cancer H/O recent NSAIDs use --CT ABD:An esophageal mass lesion is partially visualized. Postoperative change with mucosal thickening and hyperemia is noted at the gastroesophageal junction. This may be treatment related and clinical correlation will be required. Findings of pulmonary pleural-based metastatic disease appears progressed as compared to the 12/25/2019 head examination. There are at least 4 low attenuation hepatic lesions measure up to 1.0 cm. These were not clearly seen previously and are concerning for developing hepatic metastatic disease. Retrocrural and retroperitoneal lymphadenopathy is consistent with metastatic disease. Punctate bilateral nonobstructing renal calculi. Marked prostatomegaly. Additional findings as above. 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: -Previously on 5-Fluorouracil, Leucovorin and irinotecan combination every 2 weeks -CT abd as above -Follows with as outpatient -Currently prefers to hold chemotherapy treatment since March to focus on holistic approach -Planned for PET-CT scan on 05/21/2020 DVT Px: SCDs Re: GI bleeding Code status: FULL CODE Disposition Expect to discharge home when medically stable Admission and Anticipated Discharge Date Admission Date: May 04, 2020 Subjective Patient is seen and examined at bedside States having minimal epigastric pain, chronic back pain Denies nausea, vomiting, chest pain, shortness of breath Tolerating clear liquid diet Offers no other complaints Denies any recurrence of bleeding since hospitalization. Review of Systems Review of Systems: All systems reviewed & are unremarkable except as noted in HPI & below Physical Exam Physical Exam: Physical Exam: Vitals signs as noted above General Appearance:Thin, Frail, Chronic ill appearing, no apparent distress Head: normocephalic, Atraumatic Eyes: normal inspection, EOMI Neck: supple, Trachea midline Respiratory/Chest: Normal breath sounds, CTA Cardiovascular: S1, S2, No murmur Abdomen/GI:Soft, mild epigastric tender, Bowel sounds present Back: Left parasternal tenderness Extremities/Musculoskelatal:normal inspection, no edema Neurologic/Psych:AAOX3, grossly no focal neurological deficits Skin: normal color, warm Results & Data Results & Data ([facility]) Vital Signs (Past 12 Hours) Vital Signs Temp Pulse Pulse Resp BP BP Pulse Ox 05/05/20 15:42 36.8 C 67 18 113/76 97 05/05/20 15:39 64 05/05/20 13:08 57 L 05/05/20 11:59 36.8 C 59 L 18 125/81 99 05/05/20 11:14 63 05/05/20 07:07 36.7 C 61 16 116/75 100 Laboratory Results Short CBC 05/05/20 05/05/20 Range/Units 06:40 15:53 WBC 3.67 L (4.8-10.8) K/uL Hgb 10.3 L 10.5 L (14.0-18.0) g/dL Hct 29.8 L 30.0 L (42-52) % Plt Count 204 (130-400) K/uL BMP 05/05/20 06:40 Sodium 141 Potassium 4.6 D Chloride 110 H Carbon Dioxide 25 BUN 17 Creatinine 0.87 Glucose 83 Calcium 8.6 Liver Function 05/05/20 Range/Units 06:40 Total Bilirubin 1.2 H (0.2-1) mg/dl AST 16 (15-37) U/L ALT 16 (12-78) U/L Alkaline Phosphatase 40 L (45-117) U/L Albumin 3.1 L (3.4-5.0) gm/dl
[2020-05-06] MEDS: PANTOprazole 40 MG in DEXTROSE 5% 100 ML IV SCH ×3 (01:07→11:22)
[2020-05-06] MEDS: HYDROmorphone INJ 0.5 MG/0.5 ML SYR IV PRN ×5 (03:51→20:40)
[2020-05-06] MEDS: LACTATED RINGER'S 1,000 ML IV SCH (07:36)
[2020-05-06 07:39] LABS: Hemoglobin 10.5 g/dL (14.0-18.0); Mean Corpuscular Volume 88.5 fL (80-100); Mean Platelet Volume 9.2 fL (7.4-10.4); Platelet Count 197 K/uL (130-400); RDW Standard Deviation 45.4 fL (36.4-46.3); Red Blood Count 3.39 M/uL (4.7-6.1); White Blood Count 4.41 K/uL (4.8-10.8)
[2020-05-06 08:07] LABS: BUN Creatinine Ratio 9.2 (10-20); Calcium 8.6 mg/dl (8.5-10.1); Est GFR (African American) 105.4; Est GFR (Non-African American) 90.9; Magnesium 2.1 mg/dl (1.8-2.4); Potassium 3.6 mmol/L (3.5-5.1)
[2020-05-06] MEDS: ONDANSETRON INJ 2 MG/ML 2 ML VIAL IV PRN ×2 (12:05→18:56)
[2020-05-06] MEDS: TRAMADOL HCL 50 MG TABLET PO PRN (14:30)
[2020-05-06] MEDS: OXYCODONE HCL IR 5 MG TAB (IMMEDIATE RELEASE) PO PRN ×2 (18:56→23:20)
[2020-05-06] MEDS: PANTOprazole 40 MG TAB PO SCH (20:39)
--- NOTE | 2020-05-06 22:18 | Hospitalist Progress Note ---
Date of Service May 06, 2020 Assessment & Plan (1) Gastrointestinal bleeding, upper: Presented with hematemesis. Taking NSAID's for pain. Underlying esophageal Ca. Received IV pantoprazole infusion. Seen by GI. EGD not recommended at this time. No further hematemesis. Hgb 12.6, 10.3, 10.5, 10.5. Transition to PO PPI. (2) Acute blood loss anemia: Acute blood loss anemia secondary to upper GI bleed as noted above. 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 Opted to stop palliative chemotherapy due to side effects. Due for follow-up PET scan soon. 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 (5) Cancer associated pain: Severe epigastric discomfort. Underlying esophageal cancer. Taking NSAID's at home with only minimal relief. Need to avoid NSAID's due to UGI bleed. Acetaminophen offers no significant relief. Currently receiving IV hydromorphone that helps for a few hours. Concerned about issues related to narcotic analgesics. Try tramadol for moderate pain + oxycodone for severe pain. Consider long-acting medication with short-acting med for breakthrough pain if that regimen is not effective. (6) Protein calorie malnutrition: Documented 43 lb wt loss from February 2019 to present. Underlying esophageal Ca with dysphagia. Consult Watch Repairer Apprentice. (7) DVT prophylaxis: No anticoagulants due to GI bleed. SCD's. Ambulate. (8) Discharge planning issues: Anticipated discharge to home. Internal Medicine follow-up with Dr. Alarcon. Hematology / Medical Oncology follow-up with Dr. Reji Garcia. Consider outpatient Palliative Medicine consultation for symptom management and determination of priorities / goals. Admission and Anticipated Discharge Date Admission Date: May 06, 2020 Subjective Recheck for upper GI bleed and other problems. Patient seen in their room around 1050. visiting. Admitted 05/04 with upper GI bleed. History of esophageal cancer. Was taking NSAID's for pain. Seen by GI; EGD not recommended at this time. Treated with pantoprazole infusion. No further hematemesis. Intermittent pain, mostly upper abdominal, requiring IV hydromorphone for relief. Concerned about having adequate pain relief; also concerned about using narcotics. Has lost > 40 lbs. Ambulating in room. Review of Systems: Constitutional- no fever. Cardiac- no chest pain. Pulmonary- no cough or SOB. GI- as noted above. - no urinary symptoms. Otherwise, as noted above. Physical Exam Constitutional: + thin; no acute distress Eyes: + anicteric sclerae Respiratory: no respiratory distress Auscultation: lungs clear to auscultation bilaterally Cardiovascular: Rate/Rhythm: regular rate and regular rhythm Vessels: no JVD Extremities: no calf tenderness and no edema Gastrointestinal (Abdomen): Inspection/Auscultation: normal bowel sounds Percussion/Palpation: + abdomen tender (epigastric) and abdomen soft Musculoskeletal: Extremities: no cyanosis Skin: no rashes, warm and dry Psychiatric: Orientation: alert and oriented x 3 Results & Data Results & Data ([facility]) Vital Signs (Past 12 Hours) Vital Signs Temp Pulse Pulse Resp BP BP Pulse Ox 05/06/20 19:51 36.8 C 65 17 113/78 99 05/06/20 16:00 71 05/06/20 15:58 36.9 C 75 17 123/78 100 05/06/20 11:24 36.6 C 60 16 131/85 98 Laboratory Results Laboratory Results - last 24 hr 05/06/20 05/06/20 07:12 07:12 WBC 4.41 L RBC 3.39 L Hgb 10.5 L Hct 30.0 L MCV 88.5 MCH 31.0 MCHC 35.0 RDW Std Deviation 45.4 RDW Coeff of Amy 14.0 Plt Count 197 MPV 9.2 Sodium 140 Potassium 3.6 D Chloride 106 Carbon Dioxide 25 Anion Gap 9.0 BUN 9 D Creatinine 0.94 Est Cr Clr Drug Dosing 60.0 Est GFR ( Amer) 105.4 Est GFR (Non-Af Amer) 90.9 BUN/Creatinine Ratio 9.2 L Glucose 83 Calcium 8.6 Magnesium 2.1
[2020-05-07] MEDS: HYDROmorphone INJ 0.5 MG/0.5 ML SYR IV PRN (00:45)
[2020-05-07] MEDS: OXYCODONE HCL IR 5 MG TAB (IMMEDIATE RELEASE) PO PRN (06:12)
[2020-05-07 08:00] LABS: Hematocrit (blood only) 30.8 % (42-52); Hemoglobin 10.4 g/dL (14.0-18.0); Mean Corpuscular Hemoglobin 30.1 pg (25-34); Mean Corpuscular Hgb Conc 33.8 g/dL (32-36); Mean Corpuscular Volume 89.3 fL (80-100); Platelet Count 197 K/uL (130-400); RDW Standard Deviation 45.9 fL (36.4-46.3); Red Blood Count 3.45 M/uL (4.7-6.1); White Blood Count 4.57 K/uL (4.8-10.8)
[2020-05-07] MEDS: PANTOprazole 40 MG TAB PO SCH (08:35)
[2020-05-07 09:12] LABS: BUN Creatinine Ratio 7.8 (10-20); Calcium 8.5 mg/dl (8.5-10.1); Creatinine Clr Calc Pharmacy 60.4 ml/min; Est GFR (Non-African American) 89.8; Potassium 3.5 mmol/L (3.5-5.1)
--- NOTE | 2020-05-07 13:44 | Hospitalist Progress Note ---
Date of Service May 07, 2020 Assessment & Plan (1) Gastrointestinal bleeding, upper: Presented with hematemesis. Taking NSAID's for pain. Underlying esophageal Ca. Received IV pantoprazole infusion. Seen by GI. EGD not recommended at this time. No further hematemesis. Hgb 12.6, 10.3, 10.5, 10.5, 10.4. DC on PO PPI BID. (2) Acute blood loss anemia: Acute blood loss anemia secondary to upper GI bleed as noted above. 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 Opted to stop palliative chemotherapy due to side effects. Due for follow-up PET scan soon. F/U with Heme/Onc after pet. 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 (5) Cancer associated pain: Severe epigastric discomfort. Underlying esophageal cancer. Taking NSAID's at home with only minimal relief. Need to avoid NSAID's due to UGI bleed. Acetaminophen offers no significant relief. Pt concerned about issues related to narcotic analgesics. Try tramadol for moderate pain + oxycodone for severe pain. Consider long-acting medication with short-acting med for breakthrough pain if that regimen is not effective. (6) Protein calorie malnutrition: Documented 43 lb wt loss from February 2019 to present. Underlying esophageal Ca with dysphagia. Seen by Outside Sales Representative [employer]. (7) DVT prophylaxis: No anticoagulants due to GI bleed. SCD's. Ambulate. (8) Discharge planning issues: Discharge to home. Internal Medicine follow-up with Dr. Alarcon. Hematology / Medical Oncology follow-up with Dr. Reji Garcia. Consider outpatient Palliative Medicine consultation for symptom management and determination of priorities / goals. Admission and Anticipated Discharge Date Admission Date: May 06, 2020 Subjective Recheck for upper GI bleed and other problems. Patient seen in their room around 1120. No further hematemesis. No melena or hematochezia. Pain under better control; oral analgesics effective. Ambulating. Would like to go home. Physical Exam Constitutional: + thin; no acute distress Eyes: + anicteric sclerae Respiratory: no respiratory distress Auscultation: lungs clear to auscultation bilaterally Cardiovascular: Rate/Rhythm: regular rate and regular rhythm Vessels: no JVD Extremities: no calf tenderness and no edema Gastrointestinal (Abdomen): Inspection/Auscultation: normal bowel sounds Percussion/Palpation: abdomen soft; abdomen nontender Musculoskeletal: Extremities: no cyanosis Skin: no rashes, warm and dry Psychiatric: Orientation: alert and oriented x 3 Results & Data Results & Data ([facility]) Vital Signs (Past 12 Hours) Vital Signs Temp Pulse Pulse Resp BP BP Pulse Ox 05/07/20 11:13 36.9 C 59 L 16 113/79 97 05/07/20 08:40 54 L 05/07/20 07:39 36.7 C 65 16 94/55 L 99 05/07/20 02:26 36.7 C 89 18 120/74 99 Laboratory Results 05/07/20 07:49 05/07/20 07:49
[2020-05-07] MEDS: TRAMADOL HCL 50 MG TABLET PO PRN (14:26)
--- NOTE | 2020-05-08 06:49 | Discharge Summary ---
Date of Service Date of Admission: 05/04/20 Date of Discharge: 05/07/20 Admission HPI Per Admitting Provider This is a 55yo M with a PMH of metastatic esophageal cancer and history of kidney stones who presents with hematemesis x 5 days. Was previously on 5- Fluorouracil, Leucovorin and irinotecan combination every 2 weeks who elected to hold the chemotherapy treatment in March to focus on holistic approach. Has been feeling well until the last five days, tolerating a mostly liquid diet of bone broth and soft vegetavles like squash. Over the past 5 days, patient developed a few episodes of vomiting bright red blood. Occurred around the time he took 400mg NSAIDs x 2 for back pain. Most significant episode occurred last night with a larger amount of bright red blood as well as some dark red. Discussed this with ED provider friend who urged him to come to the ER but patient wanted to wait until this morning. Endorses some worsened diffuse abdominal pain. No melena or hematochezia. No fever, chills, lightheadedness, chest pain, SOB, dysuria or hematuria. In ED, patient is afebrile and hemodynamically stable. No leukocytosis. Hgb at baseline today at 12.6. BUN 22. Creatinine at baseline. CT abd/pelvis re- demonstrates esophageal mass and hyperemia is noted at the gastroesophageal junction as well as progressed findings of metastatic disease to lungs and multiple hepatic lesions. Principal Diagnosis upper GI bleed due to esophageal cancer acute blood loss anemia Discharge Data Allergies Allergy/AdvReac Type Severity Reaction Status Date / Time No Known Allergies Allergy Unverified 05/04/20 10:37 Consultations 05/04/20 13:32 ED Decision to Admit Stat 05/04/20 15:24 Consult Gastroenterology Routine Ordered Studies 05/04/20 09:46 CT abd pelvis IV con only Stat Hospital Course (1) Gastrointestinal bleeding, upper: Presented with hematemesis. Taking NSAID's for pain. Underlying esophageal Ca. Received IV pantoprazole infusion. Seen by GI. EGD not recommended at this time. No further hematemesis. Hgb 12.6, 10.3, 10.5, 10.5, 10.4. DC on PO PPI BID. (2) Acute blood loss anemia: Acute blood loss anemia secondary to upper GI bleed as noted above. 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 Opted to stop palliative chemotherapy due to side effects. Due for follow-up PET scan soon. F/U with Heme/Onc after pet. 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 (5) Cancer associated pain: Severe epigastric discomfort. Underlying esophageal cancer. Taking NSAID's at home with only minimal relief. Need to avoid NSAID's due to UGI bleed. Acetaminophen offers no significant relief. Pt concerned about issues related to narcotic analgesics. Try tramadol for moderate pain + oxycodone for severe pain. Consider long-acting medication with short-acting med for breakthrough pain if that regimen is not effective. (6) Protein calorie malnutrition: Documented 43 lb wt loss from February 2019 to present. Underlying esophageal Ca with dysphagia. Seen by Rock Picker. (7) DVT prophylaxis: No anticoagulants due to GI bleed. SCD's. Ambulate. (8) Discharge planning issues: Discharged to home. Internal Medicine follow-up with Dr. Alarcon. Hematology / Medical Oncology follow-up with Dr. Reji Garcia. Consider outpatient Palliative Medicine consultation for symptom management and determination of priorities / goals. Total Time Total Time Spent Total Time Spent (In Minutes): 40 Discharge Plan Discharge Items Patient Disposition: Home - Self-Care Reason For Visit: vomiting blood Discharge Diagnosis: vomiting blood cancer of esophagus Activity: As commented below Activity Comment: Gradually increase activity as tolerated. Non-emergency contact: Primary Care Provider, Hospitalist and Oncologist Call non-emergency contact if: you have any medication questions, your symptoms worsen and your temperature is above 101 Follow-up/Referrals: Crow Alarcon MD [Primary Care Provider] - 05/13/20 11:20 am (Date & Time 05/13/2020 11:20 AM Crow Alarcon MD General Internal Medicine [facility] ) Reji Garcia MD [Surgeon] - (05/27/2020 1:30 PM Reji Garcia MD Hematology/Oncology [facility]) Diet: Regular Diet Comment: Per guidance of your product coordinator. Addtl Attending Provider Instructions: MEDICATION CHANGES: No not use any aspirin or nonsteroidal anti-inflammatory drugs like ibuprofen (Advil or Motrin), naproxen (Aleve), and other similar medications. They can cause irritation, ulcers, and bleeding of esophagus and stomach. Take omeprazole (Prilosec) 40 mg twice a day. Pain medications: tramadol (Ultram) 50 mg every 6 hrs for moderate pain 4-6 100 mg every 6 hrs for severe pain 7-8 oxycodone 5 mg every 6 hrs for severe pain 7-8 10 mg every 6 hrs for very severe pain 9-10 MiraLax 17 gms mixed with water or juice twice a day as needed for constipation SUMMARY OF TEST RESULTS: Hemoglobin levels: 05/04 12.6 05/05 10.3 05/06 10.5 05/[address] scan showed: mass / thickening of esophagus spots in lungs spots in liver enlarged lymph nodes in chest and abdomen enlarged prostate RECOMMENDATIONS FOR FOLLOW-UP: PET scan as ordered. You may want to consider Palliative Medicine consultation for assistance adjusting your pain medicines and outlining the goals of your treatment plan. This can be done by telemedicine. Dr. Alarcon or Dr. Garcia can assist with arrangements if you are interested. OTHER INSTRUCTIONS: Seek medical attention if you have: * temperature above 101 * chest pain or trouble breathing * abdominal pain, nausea, vomiting * diarrhea, dark stools or bloody stools * any unanswered questions or concerns Call 911 if symptoms are severe. Please take good care of yourself. Call if you have any questions or problems. You can reach a [facility] hospitalist on duty at [facility] 24 hours a day by calling [phone]. My cell # is [phone]. Pending Studies at Discharge: No Stand-Alone Forms: My [facility], Smoking Cessation Medications and DC Order Prescriptions: New oxycodone 5 mg Tablet See Rx Instructions .ROUTE .COMPLEX PRN (Reason: pain) Qty: 60 RF: 0 tramadol 50 mg Tablet See Rx Instructions .ROUTE .COMPLEX PRN (Reason: pain) Qty: 60 RF: 0 omeprazole 40 mg capsule,delayed release(DR/EC) 40 mg PO BID Qty: 60 RF: 5 No Action No Known Home Medications RF: 0 Discharge Orders: Discharge Order (Routine); Ordered 05/07/20 Ordered By: Rey Deleon Admission Data Admit Date/Time: 05/06/20 12:25 Attending Provider: Rey Deleon Admit Provider: Deangelo Lane Primary Care Provider: Crow Alarcon Other Providers: Deangelo Lane ; Sudhir Ramon ; Hansel Ballesteros Other Interventions: Discharge Summary Assessment (RN) Last Done: 05/07/20 14:31
== END 2020-05-07 15:24 | disposition home or self-care (01) | DRG 375 ==
LOC: 2N 09:25 → ED 09:25 → 2N 15:32 → SUATTDRO 16:04

== ENCOUNTER 2020-05-08 06:34 | Inpatient (IN) ==
[2020-05-08] MEDS ORDERED: SODIUM CHLORIDE 0.9% 1000ML 1,000 ML IV STA (06:51)
[2020-05-08] MEDS ORDERED: SODIUM CHLORIDE 0.9% 1000ML 500 ML IV ONE (06:51)
[2020-05-08] MEDS ORDERED: PANTOprazole 80 MG in DEXTROSE 5% 100 ML IV ONE (06:57)
[2020-05-08] MEDS ORDERED: PANTOPRAZOLE BOLUS/DRIP 1 EA IV STA (06:57)
[2020-05-08] MEDS ORDERED: HYDROmorphone INJ 0.5 MG/0.5 ML SYR IV PRN (06:57)
[2020-05-08] MEDS ORDERED: FAMOTIDINE 20MG IV PUSH 20 MG/5 ML SYR IV STA (06:57)
[2020-05-08] MEDS ORDERED: ONDANSETRON INJ 2 MG/ML 2 ML VIAL IV STA (06:57)
--- NOTE | 2020-05-08 07:09 | Emergency Department Note ---
Impression & Plan Gastrointestinal bleeding, upper, Acute blood loss anemia ED Provider Note INFORMANT: Patient ED PROVIDER(S): Rey Mabry MD CHIEF COMPLAINT: Vomiting blood PLAN: Disposition: Admitted Condition: Guarded MEDICAL DECISION MAKING: Patient presented back to the emergency department because of vomiting blood. He was just discharged from the hospital. His blood pressure was mildly low compared to his inpatient measurements and last ER visit. He had epigastric tenderness. A large-bore IV was placed in the left AC. His port was accessed. Blood work was obtained. He was given a fluid bolus of normal saline 500 mL, and then started on a drip of 125 mL an hour. IV Protonix bolus and drip was initiated. IV Pepcid was given. The patient had an episode of vomiting in emergency [place] and it was quite significant. It was bloody. Patient was treated with IV Dilaudid 0.5 mg and Zofran 4 mg for symptom control. Rapid COVID testing was performed due to possible need for EGD. On reassessment he was feeling better. The patient was evaluated in the emergency department by the [facility] hospital service as well as [facility] GI. He was admitted for further management. Triage Nursing notes reviewed and agree them. Additional history obtained from patient's . Prior medical records reviewed regarding his recent hospitalization. His hemoglobin did drop from 12-10. Vital Signs: reviewed and remarkable for hypotension Differential diagnosis: Complication of malignancy, Tameka-Gabriel tear, esophagitis, peptic ulcer diseas e,Diverticulosis, AVM, coagulopathy, colitis, inflammatory bowel disease, variceal bleed, gastritis, epistaxis, fissure, hemorrhoids, as well as other pathologies. Diagnostics interpreted by me: ECG: None Cardiac Monitoring: Cardiac monitoring ordered by me: The patient was placed on continuous cardiac monitoring and observed. It revealed a normal sinus rhythm at 82 beats per minute without ectopy or evidence of dysrhythmia. Imaging studies: CT scan abdomen pelvis did not reveal any evidence of obstruction. There is a esophageal mass present. Moderate fluid noted within the stomach. [facility] Rey Dele[facility] gastroenterology, Zoraida Murray NP HPI: The patient is a 55 year old male who presents to the Emergency Room with complaints of vomiting blood. This started again this morning at 0 600 and is currently stopped. The patient also notes the following associated symptoms, e pigastric abdominal pain, dizziness. The patient has tried oxycodone for relieving factors. Current pain is rated as 8.5/10. Patient was recently discharged yesterday from the hospital after an upper GI bleed. He is taking omeprazole twice daily. The patient is also not taking NSAIDs. He did not receive a transfusion in the hospital and had no additional bleeding after treatment with the IV acid reducers. Patient notes he has not had a bowel movement in about 4 days. Pt denies LOC, headache, fevers, chills, diaphoresis, visual changes, neck pain, chest pain, breathing difficulties, back pain, melena, hematochezia, urinary symptoms, numbness, weakness, lymphadenopathy, rash, or other complaints. ROS: See above HPI for pertinent positives & negatives. A total of 10 systems reviewed and were otherwise negative. PAST MEDICAL HISTORY:See Below, esophageal cancer PAST SURGICAL HISTORY:See Below, Mediport FAMILY HISTORY:See Below SOCIAL HISTORY:See Below, HOME MEDICATIONS:See Below ALLERGIES:See Below VITALS:See Below PHYSICAL EXAMINATION: GENERAL: Awake, alert, thin-appearing,, mildly anxious, in no distress HENT: Normocephalic, atraumatic. Oropharynx unremarkable. EYES: Normal conjunctiva. Sclera non-icteric. NECK: Inspection normal. Non-tender. Supple. No nuchal rigidity. FROM. No masses. RESPIRATORY: Clear to auscultation. No wheezes. No rales. Normal respiratory effort. CARDIAC: Normal rate. Normal rhythm. No murmurs. No rubs. Extremities warm and well perfused. Pulses equal. No JVD. GI: Soft, non-distended. Epigastric and mild left upper quadrant tenderness to palpation. No rebound or guarding. No masses. RECTAL: Deferred. MUSCULOSKELETAL: Atraumatic. Chest examination reveals no tenderness, Mediport in the right upper chest. The back is symmetrical on inspection without obvious abnormality. There is no CVA tenderness to palpation. No joint edema. LOWER EXTREMITIES: Calves are equal size bilaterally and non-tender. No edema. No discoloration. NEURO: Normal sensorium. No sensory or motor deficits noted. SKIN: No rash or jaundice noted. Mild bruising noted in the right AC consistent with prior blood draw. ED COURSE: Critical Care: I have personally spent greater than 35 minutes of critical care time in the direct management of this patient. This includes bedside care, interpretation of diagnostic studies, and testing, discussion with consultants, patient, and family members, and other required patient management activities. These minutes are in excess of all separately billable procedures. 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 History of kidney stones History of rheumatoid arthritis Protein calorie malnutrition Surgical History History of inguinal hernia repair Family History Other Alzheimer disease Social History Smoking Status: Current every day smoker Cigarettes Per Day: marijuana smokes for cancer symptoms; Second Hand Exposure: No; Do You Dip or Chew Tobacco: No; Tobacco Cessation Education Requested by Patient: No Hx Alcohol Use: No Hx Substance Use: Yes Last Used Substance: Unknown Substance Use Type Other:: for cancer Preferred Language: Bulgarian Communication Ability: Effective 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 Design 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: No Beliefs That Will Affect Care: None marital status: Current Living Situation: Spouse Other Information That Helps Us Care for You: No Feels Safe at Home: Yes Safety Concerns: Feels Safe At This Time Allergies Allergies Allergy/AdvReac Type Severity Reaction Status Date / Time No Known Allergies Allergy Unverified 05/08/20 07:51 Home Meds Previous Rx's Medication Instructions Recorded omeprazole 40 mg PO BID #60 cap 05/07/20 oxycodone See Rx Instructions .ROUTE 05/07/20 .COMPLEX PRN #60 tab tramadol See Rx Instructions .ROUTE 05/07/20 .COMPLEX PRN #60 tab Results & Data (ED) Vital Signs Vital Signs - 24 hr 05/08/20 06:39 05/08/20 07:16 05/08/20 07:44 Temperature 36.4 C L Temperature Source Oral Pulse Rate 88 68 Pulse Rate [Left] 67 68 Respiratory Rate 20 16 16 Respiratory Effort / Characteristics Non-Labored Spontaneous Spontaneous Respiratory Depth Normal Normal Blood Pressure 96/65 L Blood Pressure [Right Arm] 104/69 134/95 Blood Pressure Mean 75 Blood Pressure Mean [Right Arm] 80 108 Blood Pressure Position [Right Arm] Lying Lying Pulse Oximetry 99 100 100 Oxygen Delivery Method Room Air Room Air Room Air Sepsis Recent Fever Within 48 Hours No Sepsis New/Unexplained Change in Mental Status N/A Sepsis Action Taken by Nursing No Action Required Laboratory Data Result diagrams: 05/08/20 11:45 05/08/20 07:02 Lab Results 05/08/20 05/08/20 05/08/20 Range/Units 07:02 07:02 07:02 WBC 5.05 (4.8-10.8) K/uL RBC 3.64 L (4.7-6.1) M/uL Hgb 11.2 L (14.0-18.0) g/dL Hct 31.9 L (42-52) % MCV 87.6 (80-100) fL MCH 30.8 (25-34) pg MCHC 35.1 (32-36) g/dL RDW Std Deviation 44.5 (36.4-46.3) fL RDW Coeff of Amy 13.8 (11.5-14.5) % Plt Count 245 (130-400) K/uL MPV 9.1 (7.4-10.4) fL Immature Gran % (Auto) 0.2 % Neut % (Auto) 59.0 % Lymph % (Auto) 25.3 % [place] % (Auto) 11.9 % Eos % (Auto) 3.0 % Baso % (Auto) 0.6 % Neut # (Auto) 2.98 (1.4-6.5) K/uL Lymph # (Auto) 1.28 (1.2-3.4) K/uL [place] # (Auto) 0.60 H (0.11-0.59) K/uL Eos # (Auto) 0.15 (0-0.5) K/uL Baso # (Auto) 0.03 (0-0.2) K/uL Immature Gran # (Auto) 0.01 (0.00-0.02) K/uL PT 11.4 (9.0-12.0) Seconds INR 1.1 (0.9-1.1) APTT 28.0 (21.0-31.0) Seconds PTT Ratio 1.0 Sodium (136-145) mmol/L Potassium (3.5-5.1) mmol/L Chloride (98-107) mmol/L Carbon Dioxide (21-32) mmol/L Anion Gap (3-11) BUN (7-18) mg/dl Creatinine (0.6-1.4) mg/dl Est Cr Clr Drug Dosing Est GFR ( Amer) Est GFR (Non-Af Amer) BUN/Creatinine Ratio (10-20) Glucose (70-99) mg/dl Calcium (8.5-10.1) mg/dl Total Bilirubin (0.2-1) mg/dl AST (15-37) U/L ALT (12-78) U/L Alkaline Phosphatase (45-117) U/L Total Protein (6.4-8.2) gm/dl Albumin (3.4-5.0) gm/dl Globulin (2.5-4.0) gm/dl Albumin/Globulin Ratio (0.9-2) COVID-19 Eval Order SARS-CoV-2, RNA, NAAT (NEGATIVE) Blood Type O Positive Antibody Screen NEGATIVE 05/08/20 05/08/20 05/08/20 Range/Units 07:02 08:00 08:00 WBC (4.8-10.8) K/uL RBC (4.7-6.1) M/uL Hgb (14.0-18.0) g/dL Hct (42-52) % MCV (80-100) fL MCH (25-34) pg MCHC (32-36) g/dL RDW Std Deviation (36.4-46.3) fL RDW Coeff of Amy (11.5-14.5) % Plt Count (130-400) K/uL MPV (7.4-10.4) fL Immature Gran % (Auto) % Neut % (Auto) % Lymph % (Auto) % [place] % (Auto) % Eos % (Auto) % Baso % (Auto) % Neut # (Auto) (1.4-6.5) K/uL Lymph # (Auto) (1.2-3.4) K/uL [place] # (Auto) (0.11-0.59) K/uL Eos # (Auto) (0-0.5) K/uL Baso # (Auto) (0-0.2) K/uL Immature Gran # (Auto) (0.00-0.02) K/uL PT (9.0-12.0) Seconds INR (0.9-1.1) APTT (21.0-31.0) Seconds PTT Ratio Sodium 138 (136-145) mmol/L Potassium 3.6 (3.5-5.1) mmol/L Chloride 105 (98-107) mmol/L Carbon Dioxide 27 (21-32) mmol/L Anion Gap 7.0 (3-11) BUN 15 D (7-18) mg/dl Creatinine 1.17 (0.6-1.4) mg/dl Est Cr Clr Drug Dosing Not Reportable Est GFR ( Amer) 80.9 Est GFR (Non-Af Amer) 69.8 BUN/Creatinine Ratio 12.4 (10-20) Glucose 107 H (70-99) mg/dl Calcium 9.0 (8.5-10.1) mg/dl Total Bilirubin 1.3 H (0.2-1) mg/dl AST 17 (15-37) U/L ALT 17 (12-78) U/L Alkaline Phosphatase 48 (45-117) U/L Total Protein 6.6 (6.4-8.2) gm/dl Albumin 3.5 (3.4-5.0) gm/dl Globulin 3.1 (2.5-4.0) gm/dl Albumin/Globulin Ratio 1.1 (0.9-2) COVID-19 Eval Order Covid19 IDNow [facility] SARS-CoV-2, RNA, NAAT NEGATIVE (NEGATIVE) Blood Type Antibody Screen Administered Medications Hydromorphone HCl (Hydromorphone Inj 0.5 Mg/0.5 Ml Syr) 0.5 mg IV Q3H PRN PRN Reason: Severe Pain Stop: 05/22/20 10:29 Last Admin: 05/08/20 12:28 Dose: 0.5 mg Documented by: [id number] Pantoprazole Sodium 40 mg/ (Dextrose) 100 mls @ 20 mls/hr IV Q5H JUAN Stop: 06/07/20 07:16 Last Admin: 05/08/20 13:31 Dose: 8 mg/hr, 20 mls/hr Documented by: [id number] Infusion: 05/08/20 13:13 Dose: 8 mg/hr, 20 mls/hr Documented by: [id number] Admin: 05/08/20 08:13 Dose: 8 mg/hr, 20 mls/hr Documented by: [id number] Dextrose/Lactated Ringer's (D5w And Lactated Ringers) 1,000 mls @ 125 mls/hr IV .Q8H JUAN Stop: 06/07/20 10:29 Last Admin: 05/08/20 11:33 Dose: 125 mls/hr Documented by: [id number] Ondansetron HCl (Ondansetron Inj 2 Mg/Ml 2 Ml Vial) 4 mg IV Q6H PRN PRN Reason: Nausea Stop: 06/07/20 10:29 Last Admin: 05/08/20 15:21 Dose: 4 mg Documented by: [id number] Discontinued Medications Hydromorphone HCl (Hydromorphone Inj 0.5 Mg/0.5 Ml Syr) 0.5 mg IV Q15M PRN PRN Reason: Pain Stop: 05/22/20 06:56 Last Admin: 05/08/20 07:49 Dose: 0.5 mg Documented by: [id number] Sodium Chloride (Nss 1000ml) 1,000 mls @ 125 mls/hr IV .Q8H STA Stop: 05/08/20 14:50 Last Infusion: 05/08/20 15:14 Dose: 0 mls/hr Documented by: [id number] Admin: 05/08/20 07:14 Dose: 125 mls/hr Documented by: [id number] Sodium Chloride (Nss 1000ml) 500 mls @ 999 mls/hr IV .Q31M ONE Stop: 05/08/20 07:21 Last Infusion: 05/08/20 07:49 Dose: 0 mls/hr Documented by: [id number] Admin: 05/08/20 07:14 Dose: 999 mls/hr Documented by: [id number] Pantoprazole Sodium (Protonix Bolus/Drip) 0 mls @ 1 mls/hr IV ONE STA Stop: 05/08/20 06:58 Last Admin: 05/08/20 07:49 Dose: 1 mls/hr Documented by: [id number] Pantoprazole Sodium 80 mg/ (Dextrose) 120 mls @ 400 mls/hr IV NOW ONE Stop: 05/08/20 07:14 Last Infusion: 05/08/20 08:13 Dose: 0 mls/hr Documented by: [id number] Admin: 05/08/20 07:49 Dose: 400 mls/hr Documented by: [id number] Famotidine (Pepcid 20mg Iv Push) 20 mg in 5 mls @ 2.5 mls/min IV NOW STA Stop: 05/08/20 06:58 Last Admin: 05/08/20 07:14 Dose: 2.5 mls/min Documented by: [id number] Ioversol (Ioversol 100ml) 94 ml IV ONCE ONE Stop: 05/08/20 08:02 Last Admin: 05/08/20 08:01 Dose: 94 ml Documented by: [id number] Ondansetron HCl (Ondansetron Inj 2 Mg/Ml 2 Ml Vial) 4 mg IV NOW STA Stop: 05/08/20 06:58 Last Admin: 05/08/20 07:14 Dose: 4 mg Documented by: [id number] Discharge Plan Visit Data Chief Complaint: Vomiting Stated Complaint: VOMITING BLOOD ED Provider: Rey Mabry Discharge Problem: Gastrointestinal bleeding, upper, Acute blood loss anemia Patient Disposition: Admitted As Inpatient Discharge Instructions Interventions: ED Discharge Assessment Last Done: 05/08/20 09:57
[2020-05-08 07:17] LABS: Basophils # (auto) 0.03 K/uL (0-0.2); Basophils % (auto) 0.6 %; Eosinophils # (auto) 0.15 K/uL (0-0.5); Hematocrit (blood only) 31.9 % (42-52); Hemoglobin 11.2 g/dL (14.0-18.0); Immature Granulocytes # (auto) 0.01 K/uL (0.00-0.02); Immature Granulocytes % (auto) 0.2 %; Lymphocytes # (auto) 1.28 K/uL (1.2-3.4); Lymphocytes % (auto) 25.3 %; Mean Corpuscular Hemoglobin 30.8 pg (25-34); Mean Corpuscular Hgb Conc 35.1 g/dL (32-36); Mean Corpuscular Volume 87.6 fL (80-100); Mean Platelet Volume 9.1 fL (7.4-10.4); Monocytes % (auto) 11.9 %; Neutrophils # (auto) 2.98 K/uL (1.4-6.5); Platelet Count 245 K/uL (130-400); RDW Coefficient of Variation 13.8 % (11.5-14.5); RDW Standard Deviation 44.5 fL (36.4-46.3); Red Blood Count 3.64 M/uL (4.7-6.1); White Blood Count 5.05 K/uL (4.8-10.8)
[2020-05-08 07:32] LABS: INR 1.1 (0.9-1.1); Prothrombin Time 11.4 Seconds (9.0-12.0)
[2020-05-08 07:33] LABS: Alanine Aminotransferase 17 U/L (12-78); Albumin Level 3.5 gm/dl (3.4-5.0); Aspartate Aminotransferase 17 U/L (15-37); BUN Creatinine Ratio 12.4 (10-20); Blood Urea Nitrogen 15 mg/dl (7-18); Carbon Dioxide 27 mmol/L (21-32); Chloride 105 mmol/L (98-107); Est GFR (African American) 80.9; Est GFR (Non-African American) 69.8; Glucose 107 mg/dl (70-99); Potassium 3.6 mmol/L (3.5-5.1); Sodium 138 mmol/L (136-145)
[2020-05-08 07:36] LABS: Albumin Globulin Ratio 1.1 (0.9-2); Alkaline Phosphatase 48 U/L (45-117); Bilirubin,Total 1.3 mg/dl (0.2-1); Globulin 3.1 gm/dl (2.5-4.0); Total Protein 6.6 gm/dl (6.4-8.2)
[2020-05-08] MEDS ORDERED: IOVERSOL 100ml IV ONE (08:01)
[2020-05-08] MEDS: PANTOprazole 40 MG in DEXTROSE 5% 100 ML IV SCH ×4 (08:13→22:35)
--- NOTE | 2020-05-08 08:22 | History & Physical Report ---
Date of Service May 08, 2020 Assessment & Plan (1) Gastrointestinal bleeding, upper: Recurrent UGI bleed; underlying esophageal carcinoma. Recent use of NSAID's. Hemodynamically stable. H/H stable. Receiving IV pantoprazole bolus / infusion in ED. Consult GI for their recommendations. SARS-CoV-2 PCR requested in case EGD recommended- PCR negative. (2) Acute blood loss anemia: Hgb fell from 12.6 to 10.4 during last hospital stay. Acute blood loss anemia secondary to UGI bleed. Hgb today 11.2. Monitor H/H. 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 Status post palliative chemotherapy; opted to stop due to side effects. Due for follow-up PET scan soon. May be willing to reconsider aggressive treatment, depending on results of PET and recommendations from Hematology / Oncology. (4) Protein calorie malnutrition: Significant ( > 70 lb ) weight loss due to esophageal Ca. Seen by Java Swing Developer during last hospital stay. Well balanced diet + supplements as tolerated. (5) Cancer associated pain: Intermittent severe epigastric discomfort. Underlying esophageal cancer. Need to avoid NSAID's due to UGI bleed. Acetaminophen offers no significant relief. Trying tramadol for moderate pain + oxycodone for severe pain. Consider long-acting medication with short-acting med for breakthrough pain if that regimen is not effective. IV analgesics PRN when NPO. (6) DVT prophylaxis: No anticoagulants due to GI bleed. SCD's. Ambulate. (7) Discharge planning issues: Anticipated discharged to home. Internal Medicine follow-up with Dr. Alarcon. Hematology / Medical Oncology follow-up with Dr. Reji Garcia. Consider outpatient Palliative Medicine consultation for symptom management and determination of priorities / goals. History of Present Illness Chief Complaint: vomiting blood Primary Care Provider: Crow Alarcon MD 55 YO male followed by Dr. Alarcon for Internal Medicine and Dr. Reji Garcia for Medical Oncology. 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 Received chemotherapy, but opted to discontinue it because of neuropathy and other side effects. Admitted with UGI bleed on 05/04. Had been taking NSAID for pain. CT at that time demonstrated esophageal mass / thickening, pulmonary lesions, hepatic lesions, mediastinal + retroperitoneal adenopathy. Seen in consultation by GI. Empiric Rx with PPI recommended; EGD not recommended. Received IV pantoprazole infusion. He had no further episodes of hematemesis and remained hemodynamically stable. H/H dropped from 12.6 to 10.3, then remained stable. Discharged to home yesterday on oral PPI. Developed epigastric pain, nausea, vomiting with gross blood around 0600 this morning. His call me and he was advised to come to ED via EMS. 2 additional episodes of grossly bloody hematemesis in ED, one moderate and one small. Pain better after receiving IV hydromorphone. Received IV pantoprazole bolus / infusion. ED provider has contacted GI team. 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 History of kidney stones History of rheumatoid arthritis Protein calorie malnutrition Surgical History History of inguinal hernia repair Family History Other Alzheimer disease Social History Smoking Status: Current every day smoker Cigarettes Per Day: marijuana smokes for cancer symptoms; Second Hand Exposure: No; Do You Dip or Chew Tobacco: No; Tobacco Cessation Education Requested by Patient: No Hx Alcohol Use: No Hx Substance Use: Yes Last Used Substance: Unknown Substance Use Type Other:: for cancer Preferred Language: Vietnamese Communication Ability: Effective Ski Guide Required: No Beliefs That Will Affect Care: None Current Living Situation: Spouse Other Information That Helps Us Care for You: No Feels Safe at Home: Yes Safety Concerns: Feels Safe At This Time Review of Systems Constitutional: + weight loss; no fever Eyes: no diplopia and no worsening vision Ear, Nose, Mouth, Throat: no nasal congestion, no sinus pain/pressure and no sore throat Respiratory: no cough and no dyspnea Cardiovascular: no chest pain, no palpitations and no edema Gastrointestinal: as per Subjective / HPI Genitourinary: + urinary frequency Musculoskeletal: no joint pain and no myalgia Integumentary: no rash Neurologic: no headache(s) Psychiatric: ongoing concerns related to malignancy Endocrine: no polydipsia and no polyuria Hematologic / Lymphatic: no easy bruising and no lymphadenopathy UGI bleeding Physical Exam Constitutional: + cachectic; no acute distress and not ill appearing Eyes: PERRL, conjunctivae normal, anicteric sclerae ENMT: external ear and nose normal, oropharynx normal Neck: trachea midline, no thyromegaly Respiratory: normal respiratory effort, lungs clear to auscultation Cardiovascular: Rate/Rhythm: regular rate Heart Sounds: no gallop, no murmur and no cardiac rub Vessels: no JVD Extremities: normal capillary refill; no calf tenderness and no edema Chest (Breasts): Additional Comments: vascular access port right infraclavicular Gastrointestinal (Abdomen): normal bowel sounds, soft, nontender, no hepatosplenomegaly Inspection/Auscultation: + scaphoid Musculoskeletal: Head/Neck/Chest: neck supple Extremities: strength 5/5 throughout; no cyanosis and no clubbing Skin: no rashes, warm and dry Neurologic: PERRL, EOMI no facial palsy no dysarthria or aphasia patellar reflexes 2/2 Psychiatric: Orientation: alert and oriented x 3 Affect: euthymic affect Lymphatic: no cervical lymphadenopathy Results & Data Results & Data ([facility]) Vital Signs (Past 12 Hours) Vital Signs Temp Pulse Pulse Resp BP BP Pulse Ox 05/08/20 07:44 68 16 134/95 100 05/08/20 07:16 68 67 16 104/69 100 05/08/20 06:39 36.4 C L 88 20 96/65 L 99 Laboratory Results Laboratory Results - last 24 hr 05/08/20 05/08/20 05/08/20 07:02 07:02 07:02 WBC 5.05 RBC 3.64 L Hgb 11.2 L Hct 31.9 L MCV 87.6 MCH 30.8 MCHC 35.1 RDW Std Deviation 44.5 RDW Coeff of Amy 13.8 Plt Count 245 MPV 9.1 Immature Gran % (Auto) 0.2 Neut % (Auto) 59.0 Lymph % (Auto) 25.3 [place] % (Auto) 11.9 Eos % (Auto) 3.0 Baso % (Auto) 0.6 Neut # (Auto) 2.98 Lymph # (Auto) 1.28 [place] # (Auto) 0.60 H Eos # (Auto) 0.15 Baso # (Auto) 0.03 Immature Gran # (Auto) 0.01 PT 11.4 INR 1.1 APTT 28.0 PTT Ratio 1.0 Sodium Potassium Chloride Carbon Dioxide Anion Gap BUN Creatinine Est Cr Clr Drug Dosing Est GFR ( Amer) Est GFR (Non-Af Amer) BUN/Creatinine Ratio Glucose Calcium Total Bilirubin AST ALT Alkaline Phosphatase Total Protein Albumin Globulin Albumin/Globulin Ratio COVID-19 Eval Order SARS-CoV-2, RNA, NAAT Blood Type O Positive Antibody Screen NEGATIVE 05/08/20 05/08/20 05/08/20 07:02 08:00 08:00 WBC RBC Hgb Hct MCV MCH MCHC RDW Std Deviation RDW Coeff of Amy Plt Count MPV Immature Gran % (Auto) Neut % (Auto) Lymph % (Auto) [place] % (Auto) Eos % (Auto) Baso % (Auto) Neut # (Auto) Lymph # (Auto) [place] # (Auto) Eos # (Auto) Baso # (Auto) Immature Gran # (Auto) PT INR APTT PTT Ratio Sodium 138 Potassium 3.6 Chloride 105 Carbon Dioxide 27 Anion Gap 7.0 BUN 15 D Creatinine 1.17 Est Cr Clr Drug Dosing Not Reportable Est GFR ( Amer) 80.9 Est GFR (Non-Af Amer) 69.8 BUN/Creatinine Ratio 12.4 Glucose 107 H Calcium 9.0 Total Bilirubin 1.3 H AST 17 ALT 17 Alkaline Phosphatase 48 Total Protein 6.6 Albumin 3.5 Globulin 3.1 Albumin/Globulin Ratio 1.1 COVID-19 Eval Order Covid19 [facility] SARS-CoV-2, RNA, NAAT Pending Blood Type Antibody Screen Code Status & VTE Plan Code Status Advanced directives discussed with patient and spouse. He has a living will. He would like aggressive measures, including attempted cardiopulmonary resuscitation, undertaken if there is a reasonable chance of a meaningful recovery. However, he would not want extraordinary measures if prognosis is very poor and there would be no benefit. VTE Prophylaxis Plan VTE Prophylaxis will be ordered: Yes
--- NOTE | 2020-05-08 08:27 | CT Scan Report ---
CT OF THE ABDOMEN AND PELVIS WITH CONTRAST CLINICAL HISTORY: Acute GI Bleed, epigastric and LLQ abdominal pain. Esophageal cancer. COMPARISON STUDY: CT of the abdomen and pelvis May 04, 2020. TECHNIQUE: Following IV administration of 94 mL of Optiray-320, axial images of the abdomen and pelvi s were obtained from the lung bases to the proximal femurs. Images were reviewed in the axial, sagitt al, and coronal planes. IV contrast was administered without complication. Automated exposure contro l was utilized for the study. A dose lowering technique was utilized adhering to the principles of A CATHY. CT DOSE: 238.68 mGycm FINDINGS: Visualized portions of the lower chest demonstrate innumerable pulmonary nodules, measuring CT of the 2019. These measure up to 1.5 cm. Masslike thickening of the distal esophagus is note d. There may be an adjacent pathologic 1.3 cm necrotic lymph node. No pneumatosis, free air or portal venous gas is present. Multiple hypodense hepatic lesions measuring up to 1.3 cm are unchanged and C T of May 04, 2020. These were not evident on PET/CT of December 25, 2019. The spleen, left adrenal gl and and pancreas are unremarkable as is the right kidney. There is a 2 mm left renal calculus. There is no hydronephrosis. A right adrenal nodule is unchanged. Note is made of a necrotic aortocaval lymp h node on image 99 of 436 measures 2.8 x 1.9 cm. This was shown on prior CT of May 04, 2020. Th is is increased since earlier PET/CT. There are multiple additional enlarged retroperitoneal lymph no chuy. The stomach is mildly distended. There is layering hyperdense material within the gallbladder. T here is no evidence for acute cholecystitis by CT. There is no evidence for a bowel obstruction. Mild bladder wall thickening is noted. Prostate is moderately enlarged. A moderate amount of stool within the colon is noted. There is no bowel wall thickening. Major vasculature is patent. No suspicious os seous lesions are noted. IMPRESSION: 1. Partial visualization of mass-like thickening of the distal esophagus likely representing the know n primary tumor. 2. No change in pulmonary, hepatic and pratibha metastases since CT of May 04, 2020. 3. Mild distention of the stomach. 4. No bowel obstruction. No bowel wall thickening. ACT 112: Negative or not required by law. Electronically signed by: Sandro Acosta M.D. 05/08/2020 8:26 AM
--- NOTE | 2020-05-08 08:48 | Electrocardiogram Report ---
Test Reason : Blood Pressure : / mmHG Vent. Rate : 065 BPM Atrial Rate : 065 BPM P-R Int : 152 ms QRS Dur : 094 ms QT Int : 416 ms P-R-T Axes : 055 067 063 degrees QTc Int : 432 ms Normal sinus rhythm Normal ECG When compared with ECG of 04-MAY-2020 09:51, No significant change was found Confirmed by Fernando Partida ([id number]) on 05/08/2020 8:48:32 AM Referred By: REFERRED SELF Confirmed By:Fernando Partida
--- NOTE | 2020-05-08 09:23 | Gastrointestinal Consultation ---
Date of Consultation May 08, 2020 Assessment & Plan (1) Adenocarcinoma of esophagus metastatic to lun55 year old male with known metastatic esophageal CA who presents through the ED w/ epigaisric and LUQ pain w/ hematemesis x 2 episodes, hemodynamically stable. DDX discussed: likely from known esophageal mass NPO IV PPI bolus and drip Monitor and document GI out put Trend HGB Transfuse PRN Analgesia PRN Antiemetics PRN Hold NSAIDs Will discuss EGD w/ attending Discuss goals of care with patient - Not agreeable to esophageal stent Thank you for allowing us to participate in the care of this patient. Please call with any acute changes, questions or concerns. Please see addendum below with additional recommendation from my supervising physician. Supervising Physician Co-Signing Physician Notes I have personally seen and examined the patient with NAHOMI Dwyer. Her note reflects my exam and findings. I agree with her impression and plan. Had long discussion with patient and . Diagnostic EGD would be of little value at this point. I did ask them to cont to consider an esophageal stent placement as a therapeutic and palliative option. If patient has any signs of aggressive bleeding consider possibility of tumor erosion into large vessel and need for angiography. Sudhir Ramon M.D. History of Present Illness Reason for Consultation: hematemesis Requesting Physician: Pancho Attending Physician: Pancho History of Present Illness 55 year old male with history of metastatic esophageal (5-Fluorouracil, Leucovorin and irinotecan combination every 2 weekly) who elected to hold the chemotherapy treatment in March and focus on holistic approach at this time who presents to the ED for evaluation of hematemesis. Pt was seen and evaluated, chart reviewed. Recent admission earlier this week for same symptoms. Conservative care w/ IV PPI and antiemetics. Was discharged home. Last evening developed abd pain, LUQ and epigastric and emesis. Trino blood. No coffee ground emesis. In the ED, vitals stable. Afebrile without leukocytosis. HGB today 11.2 which is stable from labs 04/29/20. No BUN elevation. Ct redemonstrates esophageal mass and metastatic disease. CTAP 04/2020: Partial visualization of mass-like thickening of the distal esophagus likely representing the known primary tumor.No change in pulmonary, hepatic and pratibha metastases since CT of May 04, 2020. Mild distention of the stomach. No bowel obstruction. No bowel wall thickening. CTAP 03/2020: An esophageal mass lesion is partially visualized.Postoperative change with mucosal thickening and hyperemia is noted at the gastroesophageal junction. This may be treatment related and clinical correlation will be required.Findings of pulmonary pleural-based metastatic disease appears progressed as compared to the 12/25/2019 head examinationThere are at least 4 low attenuation hepatic lesions measure up to 1.0 cm. These were not clearly seen previously and are concerning for developing hepatic metastatic disease Retrocrural and retroperitoneal lymphadenopathy is consistent with metastatic disease. Punctate bilateral nonobstructing renal calculi.Marked prostatomegaly. EUS 2019: A mass was found in the middle third of the esophagus and in the lower third of the esophagus. A tissue diagnosis was obtained prior to this exam. This is of adenocarcinoma. This was staged T3 Nx Mx by endosonographic criteria. - There was no sign of significant pathology in the entire pancreas. - There was no evidence of significant pathology in the visualized portion of the liver. - Endosonographic images of the left adrenal gland were unremarkable. - There was no sign of significant pathology in the common bile duct. - There was no sign of significant pathology in the gallbladder. - No specimens collected. EGD 2019: Normal upper third of esophagus. - Malignant esophageal tumor was found in the middle third of the esophagus and in the lower third of the esophagus. Biopsied. - Normal stomach. - Normal examined duodenum. EGD 2019: Partially obstructing esophageal tumor was found in the middle third of the esophagus and in the lower third of the esophagus. Biopsied. - Normal stomach. 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 History of kidney stones History of rheumatoid arthritis Protein calorie malnutrition Surgical History History of inguinal hernia repair Family History Other Alzheimer disease Social History Smoking Status: Current every day smoker Cigarettes Per Day: marijuana smokes for cancer symptoms; Second Hand Exposure: No; Do You Dip or Chew Tobacco: No; Tobacco Cessation Education Requested by Patient: No Hx Alcohol Use: No Hx Substance Use: Yes Last Used Substance: Unknown Substance Use Type Other:: for cancer Preferred Language: Vietnamese Communication Ability: Effective Cyanide Case Hardener Required: No Beliefs That Will Affect Care: None marital status: Current Living Situation: Spouse Other Information That Helps Us Care for You: No Feels Safe at Home: Yes Safety Concerns: Feels Safe At This Time Review of Systems Constitutional: no fever, no chills and no fatigue Respiratory: no cough and no dyspnea Cardiovascular: no chest pain Gastrointestinal: + abdominal pain, + nausea and + hematemesis; no blood in stools and no melena Physical Exam Constitutional: + ill appearing and + thin Respiratory: normal respiratory effort Gastrointestinal (Abdomen): Percussion/Palpation: abdomen soft; abdomen nontender, no guarding and abdomen not rigid Skin: no rashes, warm and dry Results & Data ([facility]) Vital Signs (Past 12 Hours) Vital Signs Temp Pulse Pulse Resp BP BP Pulse Ox 05/08/20 09:13 68 16 104/79 98 05/08/20 07:44 68 16 134/95 100 05/08/20 07:16 68 67 16 104/69 100 05/08/20 06:39 36.4 C L 88 20 96/65 L 99 Laboratory Results 05/08/20 05/08/20 05/08/20 Range/Units 08:00 08:00 07:02 WBC (4.8-10.8) K/uL RBC (4.7-6.1) M/uL Hgb (14.0-18.0) g/dL Hct (42-52) % MCV (80-100) fL MCH (25-34) pg MCHC (32-36) g/dL RDW Std Deviation (36.4-46.3) fL RDW Coeff of Amy (11.5-14.5) % Plt Count (130-400) K/uL MPV (7.4-10.4) fL Immature Gran % (Auto) % Neut % (Auto) % Lymph % (Auto) % Davis % (Auto) % Eos % (Auto) % Baso % (Auto) % Neut # (Auto) (1.4-6.5) K/uL Lymph # (Auto) (1.2-3.4) K/uL Davis # (Auto) (0.11-0.59) K/uL Eos # (Auto) (0-0.5) K/uL Baso # (Auto) (0-0.2) K/uL Immature Gran # (Auto) (0.00-0.02) K/uL PT (9.0-12.0) Seconds INR (0.9-1.1) APTT (21.0-31.0) Seconds PTT Ratio Sodium 138 (136-145) mmol/L Potassium 3.6 (3.5-5.1) mmol/L Chloride 105 (98-107) mmol/L Carbon Dioxide 27 (21-32) mmol/L Anion Gap 7.0 (3-11) BUN 15 D (7-18) mg/dl Creatinine 1.17 (0.6-1.4) mg/dl Est Cr Clr Drug Dosing Not Reportable Est GFR ( Amer) 80.9 Est GFR (Non-Af Amer) 69.8 BUN/Creatinine Ratio 12.4 (10-20) Glucose 107 H (70-99) mg/dl Calcium 9.0 (8.5-10.1) mg/dl Total Bilirubin 1.3 H (0.2-1) mg/dl AST 17 (15-37) U/L ALT 17 (12-78) U/L Alkaline Phosphatase 48 (45-117) U/L Total Protein 6.6 (6.4-8.2) gm/dl Albumin 3.5 (3.4-5.0) gm/dl Globulin 3.1 (2.5-4.0) gm/dl Albumin/Globulin Ratio 1.1 (0.9-2) COVID-19 [facility] [place], RNA, NAAT NEGATIVE (NEGATIVE) Blood Type Antibody Screen 09/18/20 09/18/20 09/18/20 Range/Units 07:02 07:02 07:02 WBC 5.05 (4.8-10.8) K/uL RBC 3.64 L (4.7-6.1) M/uL Hgb 11.2 L (14.0-18.0) g/dL Hct 31.9 L (42-52) % MCV 87.6 (80-100) fL MCH 30.8 (25-34) pg MCHC 35.1 (32-36) g/dL RDW Std Deviation 44.5 (36.4-46.3) fL RDW Coeff of Amy 13.8 (11.5-14.5) % Plt Count 245 (130-400) K/uL MPV 9.1 (7.4-10.4) fL Immature Gran % (Auto) 0.2 % Neut % (Auto) 59.0 % Lymph % (Auto) 25.3 % Davis % (Auto) 11.9 % Eos % (Auto) 3.0 % Baso % (Auto) 0.6 % Neut # (Auto) 2.98 (1.4-6.5) K/uL Lymph # (Auto) 1.28 (1.2-3.4) K/uL Davis # (Auto) 0.60 H (0.11-0.59) K/uL Eos # (Auto) 0.15 (0-0.5) K/uL Baso # (Auto) 0.03 (0-0.2) K/uL Immature Gran # (Auto) 0.01 (0.00-0.02) K/uL PT 11.4 (9.0-12.0) Seconds INR 1.1 (0.9-1.1) APTT 28.0 (21.0-31.0) Seconds PTT Ratio 1.0 Sodium (136-145) mmol/L Potassium (3.5-5.1) mmol/L Chloride (98-107) mmol/L Carbon Dioxide (21-32) mmol/L Anion Gap (3-11) BUN (7-18) mg/dl Creatinine (0.6-1.4) mg/dl Est Cr Clr Drug Dosing Est GFR ( Amer) Est GFR (Non-Af Amer) BUN/Creatinine Ratio (10-20) Glucose (70-99) mg/dl Calcium (8.5-10.1) mg/dl Total Bilirubin (0.2-1) mg/dl AST (15-37) U/L ALT (12-78) U/L Alkaline Phosphatase (45-117) U/L Total Protein (6.4-8.2) gm/dl Albumin (3.4-5.0) gm/dl Globulin (2.5-4.0) gm/dl Albumin/Globulin Ratio (0.9-2) COVID-19 Eval Order SARS-CoV-2, RNA, NAAT (NEGATIVE) Blood Type O Positive Antibody Screen NEGATIVE
[2020-05-08] MEDS: D5W AND LACTATED RINGERS 1,000 ML IV SCH ×2 (11:33→19:13)
[2020-05-08 12:25] LABS: Hematocrit (blood only) 24.9 % (42-52); Hemoglobin 8.8 g/dL (14.0-18.0)
[2020-05-08] MEDS: HYDROmorphone INJ 0.5 MG/0.5 ML SYR IV PRN ×3 (12:28→20:55)
[2020-05-08] MEDS: ONDANSETRON INJ 2 MG/ML 2 ML VIAL IV PRN (15:21)
[2020-05-08 18:26] LABS: Hematocrit (blood only) 21.6 % (42-52); Hemoglobin 7.5 g/dL (14.0-18.0)
[2020-05-08] MEDS ORDERED: SODIUM CHLORIDE 0.9% 250 ML IV PRN (19:46)
[2020-05-09] MEDS: HYDROmorphone INJ 0.5 MG/0.5 ML SYR IV PRN ×7 (00:13→18:02)
[2020-05-09] MEDS: ONDANSETRON INJ 2 MG/ML 2 ML VIAL IV PRN ×4 (00:13→22:28)
[2020-05-09] MEDS: PANTOprazole 40 MG in DEXTROSE 5% 100 ML IV SCH ×4 (02:46→19:52)
[2020-05-09] MEDS: D5W AND LACTATED RINGERS 1,000 ML IV SCH (05:47)
[2020-05-09 06:40] LABS: Hematocrit (blood only) 21.5 % (42-52); Hemoglobin 7.5 g/dL (14.0-18.0); Mean Corpuscular Hgb Conc 34.9 g/dL (32-36); Mean Corpuscular Volume 88.8 fL (80-100); Mean Platelet Volume 8.7 fL (7.4-10.4); Platelet Count 161 K/uL (130-400); RDW Coefficient of Variation 14.2 % (11.5-14.5); RDW Standard Deviation 46.3 fL (36.4-46.3); Red Blood Count 2.42 M/uL (4.7-6.1); White Blood Count 3.67 K/uL (4.8-10.8)
[2020-05-09 07:20] LABS: Calcium 7.9 mg/dl (8.5-10.1); Creatinine Clr Calc Pharmacy 70.3 ml/min; Est GFR (African American) 116.6; Est GFR (Non-African American) 100.6; Potassium 3.6 mmol/L (3.5-5.1)
[2020-05-09] MEDS ORDERED: HYDROmorphone INJ 0.5 MG/0.5 ML SYR IV ONE (14:44)
[2020-05-09] MEDS ORDERED: HEPARIN 100 UNIT/ML 5ML FLUSH FLUSH PRN (16:10)
[2020-05-09 16:17] LABS: Hemoglobin 7.3 g/dL (14.0-18.0)
--- NOTE | 2020-05-09 17:26 | Gastroenterology Progress Note ---
Date of Service May 09, 2020 Assessment & Plan Admission and Anticipated Discharge Date Admission Date: May 09, 2020 Subjective No further bleeding or vomiting since last night. Had large volume BM today. Feels well. PE: Cachectic, pale, comfortable HEENT: OC clear CV: RRR Resp: CTA Abd: scaphoid, soft Labs reviewed - Hgb 7, stable on A/P: Esophageal cancer admit with hematemesis Hematemesis appears resolved at the moment. WIll plan EGD (hemospray?) if hematemesis returns. CT chest to look for aortic involvement by cancer. Results & Data ([facility]) Vital Signs (Past 12 Hours) Vital Signs Temp Pulse Pulse Resp BP BP Pulse Ox 05/09/20 16:33 36.9 C 74 18 103/75 100 05/09/20 15:26 73 05/09/20 10:54 36.7 C 71 18 104/57 L 97 05/09/20 07:32 37.0 C 69 17 96/52 L 88/58 L 97
--- NOTE | 2020-05-09 18:00 | Hospitalist Progress Note ---
Date of Service May 09, 2020 Assessment & Plan (1) Gastrointestinal bleeding, upper: Presented to ED with recurrent UGI bleed; underlying esophageal carcinoma. Recent use of NSAID's, but done for several days. Several episodes of hematemesis day of admission; none during the night or this morning. Hgb today = 7.5 after 1 unit pRBC. Hemodynamically stable, asymptomatic. No need for additional pRBC's at this time. Continue IV pantoprazole infusion. Follow H/H. GI consulted. (2) Acute blood loss anemia: As noted above. 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 Status post palliative chemotherapy; opted to stop due to side effects. Due for follow-up PET scan soon. May be willing to reconsider aggressive treatment, depending on results of PET and recommendations from Hematology / Oncology. (4) Protein calorie malnutrition: Significant ( > 70 lb ) weight loss due to esophageal Ca. Seen by [employer] Out Worker during last hospital stay. Well balanced diet + supplements as tolerated. (5) Cancer associated pain: Intermittent severe epigastric discomfort. Underlying esophageal cancer. Need to avoid NSAID's due to UGI bleed. Acetaminophen offers no significant relief. Trying tramadol for moderate pain + oxycodone for severe pain. Consider long-acting medication with short-acting med for breakthrough pain if that regimen is not effective. IV analgesics PRN when NPO. (6) DVT prophylaxis: No anticoagulants due to GI bleed. SCD's. Ambulate. (7) Discharge planning issues: Anticipated discharged to home. Internal Medicine follow-up with Dr. Alarcon. Hematology / Medical Oncology follow-up with Dr. Reji Garcia. Consider outpatient Palliative Medicine consultation for symptom management and determination of priorities / goals. Admission and Anticipated Discharge Date Admission Date: May 09, 2020 Subjective Recheck for UGI bleed. Patient seen in their room around 0930. at bedside. Received 1 unit of pRBC's last night for Hgb of 7.5 associated with hypotension. No hematemesis over night. No bowel movements since admission. Intermittent abdominal pain requiring analgesics. Review of Systems: Constitutional- no fever. Cardiac- no chest pain. Pulmonary- no cough or SOB. GI- as noted above. - no urinary symptoms. Otherwise, as noted above. Physical Exam Constitutional: + cachectic; no acute distress Eyes: + anicteric sclerae Respiratory: no respiratory distress Auscultation: lungs clear to auscultation bilaterally Cardiovascular: Rate/Rhythm: regular rate and regular rhythm Vessels: no JVD Extremities: no calf tenderness and no edema Gastrointestinal (Abdomen): Inspection/Auscultation: normal bowel sounds and + scaphoid; abdomen not distended Percussion/Palpation: abdomen soft; abdomen nontender Musculoskeletal: Extremities: no cyanosis Skin: no rashes, warm and dry Psychiatric: Orientation: alert and oriented x 3 Results & Data Results & Data ([facility]) Vital Signs (Past 12 Hours) Vital Signs Temp Pulse Pulse Resp BP BP Pulse Ox 05/09/20 16:33 36.9 C 74 18 103/75 100 05/09/20 15:26 73 05/09/20 10:54 36.7 C 71 18 104/57 L 97 05/09/20 07:32 37.0 C 69 17 96/52 L 88/58 L 97 Laboratory Results Laboratory Results - last 24 hr 05/08/20 05/08/20 05/09/20 07:02 18:14 06:29 WBC 3.67 L RBC 2.42 L Hgb 7.5 L 7.5 L Hct 21.6 L 21.5 L MCV 88.8 MCH 31.0 MCHC 34.9 RDW Std Deviation 46.3 RDW Coeff of Amy 14.2 Plt Count 161 MPV 8.7 Sodium Potassium Chloride Carbon Dioxide Anion Gap BUN Creatinine Est Cr Clr Drug Dosing Est GFR ( Amer) Est GFR (Non-Af Amer) BUN/Creatinine Ratio Glucose Calcium Blood Type O Positive Antibody Screen NEGATIVE Crossmatch See Detail 05/09/20 05/09/20 06:29 16:05 WBC RBC Hgb 7.3 L Hct 21.0 L MCV MCH MCHC RDW Std Deviation RDW Coeff of Amy Plt Count MPV Sodium 142 Potassium 3.6 Chloride 111 H Carbon Dioxide 26 Anion Gap 5.0 BUN 20 H Creatinine 0.80 D Est Cr Clr Drug Dosing 70.3 Est GFR ( Amer) 116.6 Est GFR (Non-Af Amer) 100.6 BUN/Creatinine Ratio 25.0 H Glucose 86 Calcium 7.9 L Blood Type Antibody Screen Crossmatch
[2020-05-09] MEDS ORDERED: IOVERSOL 100ml IV ONE (18:33)
--- NOTE | 2020-05-09 19:22 | CT Scan Report ---
CT SCAN OF THE CHEST WITH IV CONTRAST CLINICAL HISTORY: Hematemesis. Esophageal cancer. COMPARISON STUDY: PET/CT dated 12/25/2019. Abdominal CT dated 05/08/2020. TECHNIQUE: Following the IV administration of 94 cc of Optiray 320, CT scan of the thorax was perform ed from the thoracic inlet to the upper abdomen. Images are reviewed in the axial, sagittal, and amita nal planes. IV contrast was administered without complication. A dose lowering technique was utilize d adhering to the principles of ALARA. CT DOSE: 195.53 mGy.cm FINDINGS: Thyroid: Imaged portions of the thyroid gland are normal in size and attenuation. Esophagus: There is unchanged appearance of a large mass lesion involving the distal esophagus locate d just above the gastroesophageal junction. This measures approximately 5 cm in craniocaudal length a nd is best seen on axial image #212. The proximal esophagus is distended and fluid-filled to the leve l of the aortic arch. There is a 9 mm focus of contrast identified in the esophagus at the level of t he mass seen on image #199. This may represent active extravasation. Thoracic aorta: The thoracic aorta is normal in caliber and demonstrates standard 3-vessel arch anato my. No dissection is seen. Pulmonary vasculature: The pulmonary trunk is normal in caliber. There are no filling defects identif ied in the central pulmonary vessels to indicate pulmonary embolus. Note that this examination was no t protocoled for evaluation of the pulmonary arteries. Heart: A right internal jugular central venous infusion port is in place. The heart is normal in size and without pericardial effusion. Lungs and pleural spaces: Findings a diffuse/multifocal pulmonary metastatic disease appear modestly progressed as compared to 12/25/2019 examination. There is no airspace consolidation typical for pneumo fred. Trace pleural effusions are identified. Mediastinum: A subcarinal node on image #155 measures 1.9 x 0.8 cm. Yu: Clear. Axillae: There is no axillary lymphadenopathy. Upper abdomen: Upper abdominal and retrocrural lymphadenopathy is similar to previous. Low-attenuatio n hepatic metastases are again noted. These were better visualized on the recent abdominal CT scan du e to phase of enhancement. Skeletal structures: No lytic or blastic bony lesions are seen. IMPRESSION: 1. A large mass lesion is again seen in the distal esophagus. 2. There is a 9 mm focus of intraluminal contrast within the esophagus at the level of the mass. This is highly suspicious for active extravasation and clinical correlation will be essential. 3. There is no convincing CT evidence of aorto-esophageal fistula. 4. Extensive/multifocal pulmonary metastatic disease appears progressive as compared to the 12/25/2019 PET examination. 5. Hepatic metastatic disease and upper abdominal lymphadenopathy has not appreciably changed from 's abdominal CT scan. 6. There is distention of the proximal esophagus which is filled with fluid to the level of the aorti c arch. Note that this may place the patient at risk for aspiration. 7. Trace pleural effusions. 8. There is no airspace consolidation typical for pneumonia. 9. Additional findings as above. Findings were discussed with Dr. Maier at the time of interpretation. ACT 112: Negative or not required by law. Electronically signed by: Man Uribe M.D. 05/09/2020 7:20 PM
[2020-05-09] MEDS ORDERED: SODIUM CHLORIDE 0.9% 250 ML IV PRN (19:26)
[2020-05-09] MEDS ORDERED: LACTATED RINGER'S 1,000 ML IV PRN (19:37)
[2020-05-09] MEDS: LACTATED RINGER'S 1,000 ML IV SCH (19:52)
[2020-05-09 19:58] LABS: Hematocrit (blood only) 20.3 % (42-52); Hemoglobin 7.1 g/dL (14.0-18.0)
[2020-05-09] MEDS: HYDROmorphone INJ 1 MG/ML SYRINGE IV PRN (20:40)
--- NOTE | 2020-05-09 21:58 | History & Physical Bridge Note ---
Date of Service May 09, 2020 History & Physical Bridge Note I have examined the patient, reviewed the History & Physical and in the interval since the performance of the History & Physical I have noted the following changes of clinical significance: no changes noted
[2020-05-09] MEDS ORDERED: IOVERSOL 50ml IV ONE (22:43)
[2020-05-09] MEDS ORDERED: fentaNYL citrate 100 MCG/2 ML VIAL ONE (22:51)
--- NOTE | 2020-05-09 23:00 | Anesthesiology Consultation ---
Date of Service May 09, 2020 The patient tested negative for Covid 19 yesterday. Hgb is currently 7.1. He was transfused one unit of PRBC yesterday and one unit of PRBC today. Assessment & Plan (1) Encounter for pre-operative examination: Chart Review Chart Review: Acceptable Risk for Surgery (necessary surgery) and Patient NOT seen in Pre Admission Testing Consults Requested none History Surgery Operation Date: 05/09/20 22:30 Proposed Procedures p EGD Stent Placement - Bayron Burns Alphonserandi Height/Weight Height: 5 ft 8 in Weight: 47.627 kg Allergies Allergy/AdvReac Type Severity Reaction Status Date / Time No Known Allergies Allergy Unverified 05/08/20 07:51 Medications Home Medications Medication Instructions Recorded Confirmed Last Taken omeprazole 40 mg PO BID #60 cap 05/07/20 05/08/20 Unknown oxycodone See Rx Instructions .ROUTE 05/07/20 05/08/20 05/07/20 .COMPLEX PRN #60 tab 5 mg tramadol See Rx Instructions .ROUTE 05/07/20 05/08/20 05/07/20 .COMPLEX PRN #60 tab 50 mg Active Medications Generic Name Dose Route Start Last Admin Trade Name Freq PRN Reason Stop Dose Admin Hydromorphone HCl 0.5 mg 05/09/20 17:44 05/09/20 18:02 Hydromorphone Inj 0.5 Mg/0.5 Ml Syr IV 05/22/20 10:29 0.5 mg Q2H PRN Administration pain 4-8/10 Hydromorphone HCl 1 mg 05/09/20 17:44 05/09/20 20:40 Hydromorphone Inj 1 Mg/Ml Syringe IV 05/23/20 17:43 1 mg Q2H PRN Administration severe pain 9-10/10 Pantoprazole Sodium 40 mg/ 100 mls @ 20 mls/hr 05/08/20 07:17 05/09/20 19:52 Dextrose IV 06/07/20 07:16 8 mg/hr Q5H JUAN 20 mls/hr Administration 8 MG/HR Lactated Ringer's 1,000 mls @ 80 mls/hr 05/09/20 19:45 05/09/20 19:52 Lr IV 06/08/20 19:44 80 mls/hr .[id number] JUAN Administration Ondansetron HCl 4 mg 05/08/20 10:30 05/09/20 22:28 Ondansetron Inj 2 Mg/Ml 2 Ml Vial IV 06/07/20 10:29 4 mg Q6H PRN Administration Nausea Past Medical History Medical History (Updated 05/09/20 @ 23:03 by Alessio Espinal MD) 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 Anemia Cancer associated pain History of kidney stones History of rheumatoid arthritis Protein calorie malnutrition Past Family History Family History Other Alzheimer disease Past Surgical History Surgical History History of inguinal hernia repair Social History Smoking Status: Current every day smoker Smoking cigarettes per day: marijuana smokes for cancer symptoms Do You Dip or Chew Tobacco: No Hx Alcohol Use: No Hx Substance Use: Yes substance use type: marijuana Substance Use Type Other:: for cancer Last Used Substance: Unknown Physical Exam Vital Signs Last Vital Signs Temp 36.5 C 05/09/20 22:37 Pulse 70 05/09/20 22:37 Resp 20 05/09/20 22:37 BP 115/77 05/09/20 22:37 Pulse Ox 100 05/09/20 22:37 Testing Laboratory Results 05/09/20 19:36 05/09/20 06:29 PT 11.4 Seconds (9.0-12.0) 05/08/20 07:02 INR 1.1 (0.9-1.1) 05/08/20 07:02 APTT 28.0 Seconds (21.0-31.0) 05/08/20 07:02 Blood Type O Positive 05/08/20 07:02 Antibody Screen NEGATIVE 05/08/20 07:02 Electrocardiogram Date: 05/08/20 Findings: + NSR @ (65) [phone] Scan Report Patient: MELISSA CABALLERO Date: 05/09/20 MR#: [id number]: [address] [facility] Acct ID:[id number]: [facility]: 1965[facility] Zip: [place] [id number] Age: 55Location: 2E Sex: MRoom/Bed: [facility] Att Phy: Rey Deleon, MDDiagnosis: UGI BLEED Em Phy: Crow Alarcon, MDService Date: 05/09/20 Fam Phy:Interpreting Phy: Man Uribe MD Admit Phy: Rey Deleon MD Ordering Phy: Bayron Maier M.D. cc: ~ CT SCAN OF THE CHEST WITH IV CONTRAST CLINICAL HISTORY: Hematemesis. Esophageal cancer. COMPARISON STUDY: PET/CT dated 12/25/2019. Abdominal CT dated 05/08/2020. TECHNIQUE: Following the IV administration of 94 cc of Optiray 320, CT scan of the thorax was performed from the thoracic inlet to the upper abdomen. Images are reviewed in the axial, sagittal, and coronal planes. IV contrast was administered without complication. A dose lowering technique was utilized a dhering to the principles of ALARA. CT DOSE: 195.53 mGy.cm FINDINGS: Thyroid: Imaged portions of the thyroid gland are normal in size and attenuation. Esophagus: There is unchanged appearance of a large mass lesion involving the distal esophagus located just above the gastroesophageal junction. This measures approximately 5 cm in craniocaudal length and is best seen on axial image #212. The proximal esophagus is distended and fluid-filled to the level of the aortic arch. There is a 9 mm focus of contrast identified in the esophagus at the level of the mass seen on image #199. This may represent active extravasation. Thoracic aorta: The thoracic aorta is normal in caliber and demonstrates standard 3-vessel arch anatomy. No dissection is seen. Pulmonary vasculature: The pulmonary trunk is normal in caliber. There are no filling defects identified in the central pulmonary vessels to indicate pulmonary embolus. Note that this examination was not protocoled for evaluation of the pulmonary arteries. Heart: A right internal jugular central venous infusion port is in place. The heart is normal in size and without pericardial effusion. Lungs and pleural spaces: Findings a diffuse/multifocal pulmonary metastatic disease appear modestly progressed as compared to 12/25/2019 examination. There is no airspace consolidation typical for pneumonia. Trace pleural effusions are identified. Mediastinum: A subcarinal node on image #155 measures 1.9 x 0.8 cm. Yu: Clear. Axillae: There is no axillary lymphadenopathy. Upper abdomen: Upper abdominal and retrocrural lymphadenopathy is similar to previous. Low-attenuation hepatic metastases are again noted. These were better visualized on the recent abdominal CT scan due to phase of enhancement. Skeletal structures: No lytic or blastic bony lesions are seen. IMPRESSION: 1. A large mass lesion is again seen in the distal esophagus. 2. There is a 9 mm focus of intraluminal contrast within the esophagus at the level of the mass. This is highly suspicious for active extravasation and clinical correlation will be essential. 3. There is no convincing CT evidence of aorto-esophageal fistula. 4. Extensive/multifocal pulmonary metastatic disease appears progressive as compared to the 12/25/2019 PET examination. 5. Hepatic metastatic disease and upper abdominal lymphadenopathy has not appreciably changed from yesterday's abdominal CT scan. 6. There is distention of the proximal esophagus which is filled with fluid to the level of the aortic arch. Note that this may place the patient at risk for aspiration. 7. Trace pleural effusions. 8. There is no airspace consolidation typical for pneumonia. 9. Additional findings as above. Findings were discussed with Dr. Maier at the time of interpretation. ACT 112: Negative or not required by law. Electronically signed by: Man Uribe M.D. 05/09/2020 7:20 PM Dictated: 05/09/201906 Transcribed: 05/09/201906
[2020-05-09] MEDS ORDERED: ONDANSETRON INJ 2 MG/ML 2 ML VIAL IV PRN (23:11)
[2020-05-09] MEDS ORDERED: LABETALOL HCL IV 5 MG/ML 20ML IV PRN (23:11)
[2020-05-09] MEDS ORDERED: PHENYLEPHRINE 100MCG/ML 5ML SYR IV PRN (23:11)
[2020-05-09] MEDS ORDERED: ePHEDrine sulfate 50 MG/ML AMP IV PRN (23:11)
[2020-05-09] MEDS ORDERED: MEPERIDINE HCL 25 MG/ML CARP/VIAL IV PRN (23:11)
[2020-05-09] MEDS ORDERED: ATROPINE SULFATE 0.1 MG/ML 10ML SYR IV PRN (23:11)
[2020-05-09] MEDS ORDERED: fentaNYL citrate 100 MCG/2 ML VIAL IV PRN (23:11)
[2020-05-09] MEDS ORDERED: HYDROmorphone INJ 1 MG/ML SYRINGE IV PRN (23:11)
[2020-05-09] MEDS ORDERED: MIDAZOLAM HCL 1 MG/ML 2ML VIAL ONE (23:13)
[2020-05-09] MEDS ORDERED: ONDANSETRON INJ 2 MG/ML 2 ML VIAL ONE (23:32)
[2020-05-09] MEDS ORDERED: PROPOFOL IV EMULSION 10 MG/ML 20 ML VIAL IV ONE (23:32)
[2020-05-09] MEDS ORDERED: DEXAMETHASONE SOD INJ 4 MG/ML VIAL ONE (23:32)
[2020-05-09] MEDS ORDERED: SUCCINYLCHOLINE CHLORIDE 20 MG/ML 10 ML VIAL IV ONE (23:32)
[2020-05-09] MEDS ORDERED: LIDOCAINE HCL 2% 2 ML VIAL/AMP(20MG/ML) INFIL ONE (23:32)
--- NOTE | 2020-05-10 00:16 | Procedure Note ---
Procedure Note Date of Service May 10, 2020 EGD with esophageal stent placement performed. A therapeutic scope was passed into the upper esophagus. revealed large blood clot in the proximal esophagus that was removed by suction and Giron net. There was fresh red blood in the proximal esophagus that was cleared by suction and lavage. There was an obstructing esophageal mass at 25 cm precluding passage of the 2 T scope. The proximal edge of the mass was marked with a clip. A .035 wire was placed under fluoroscopic guidance into the stomach. Contrast was injected into the esophagus under fluoroscopy, and there was a cut off in the distal esophagus. A 15 mm extraction balloon was passed into the stomach and then withdrawn under fluoroscopic guidance to measure the length of the tumor. The tumor was estimated to be 12 cm in length. The therapeutic scope was withdrawn and the wire was left in place. An ultra thin scope was then passed into the proximal esophagus. A 15 cm partially covered Cook stent was passed over the wire under fluoroscopic and endoscopic guidance. The stent was then deployed under fluoroscopic guidance. The proximal edge of the stent was 2 cm above the proximal edge of the tumor, and the distal edge of the stent appeared to be in the stomach. The wire was withdrawn. A large amount of clotted blood was noted to reflux up from the stomach after stent placement. The ultrathin scope was used to cannulate the stent, and there was no evidence of active bleeding in the esophagus. Recommendations: Continue IV BID PPI. Clears tomorrow. AXR tomorrow. Follow hgb and transfuse for hgb < 7. Coding
--- NOTE | 2020-05-10 00:30 | GI REPORT ---
Patient Name: Gregory Quiros Procedure Date: 05/09/2020 10:58 PM Date of : 1965 Admit Type: Inpatient Age: 55 Gender: Male Attending MD: Bayron Maier MD Procedure: Upper GI endoscopy Providers: Bayron Maier MD Referring MD: Rey Deleon Indications: Hematemesis Medicines: See the Anesthesia note for documentation of the administered medications Complications: No immediate complications. Estimated Blood Loss: Estimated blood loss: none. Procedure: Pre-Anesthesia Assessment: - ASA Grade Assessment: IV - A patient with severe systemic disease that is a constant threat to life. After obtaining informed consent, the endoscope was passed under direct vision. Throughout the procedure, the patient's blood pressure, pulse, and oxygen saturations were monitored continuously. The scope was introduced through the mouth, and advanced to the body of the stomach. The upper GI endoscopy was accomplished without difficulty. The patient tolerated the procedure well. Findings: A therapeutic scope was passed into the upper esophagus. revealed large blood clot in the proximal esophagus that was removed by suction and Giron net. There was fresh red blood in the proximal esophagus that was cleared by suction and lavage. There was an obstructing esophageal mass at 25 cm precluding passage of the 2 T scope. The proximal edge of the mass was marked with a clip. A .035 wire was placed under fluoroscopic guidance into the stomach. Contrast was injected into the esophagus under fluoroscopy, and there was a cut off in the distal esophagus. A 15 mm extraction balloon was passed into the stomach and then withdrawn under fluoroscopic guidance to measure the length of the tumor. The tumor was estimated to be 12 cm in length. The therapeutic scope was withdrawn and the wire was left in place. An ultra thin scope was then passed into the proximal esophagus. A 15 cm partially covered Cook stent was passed over the wire under fluoroscopic and endoscopic guidance. The stent was then deployed under fluoroscopic guidance. The proximal edge of the stent was 2 cm above the proximal edge of the tumor, and the distal edge of the stent appeared to be in the stomach. The wire was withdrawn. A large amount of clotted blood was noted to reflux up from the stomach after stent placement. The ultrathin scope was used to cannulate the stent, and there was no evidence of active bleeding in the esophagus. Recommendation: Return pt to floor. IV BID PPI. clears. Follow for recurrent bleeding. Consider hmospray if rebleeds. Bayron Maier M.D. Bayron Maier MD 05/10/2020 12:29:26 AM This report has been signed electronically. Note Initiated On: 05/09/2020 10:58 PM Number of Addenda: 0 I attest to the content of the Intraoperative Record and orders documented therein, exceptions below {[id number]}
--- NOTE | 2020-05-10 00:30 | Anesthesiology Progress Note ---
Date of Service May 10, 2020 Anesthesia Post Procedure Vital Signs Vital Signs: Temp Pulse Pulse Pulse Resp BP BP 05/10/20 00:17 36.2 C L 78 16 117/75 05/09/20 22:37 36.5 C 70 20 115/77 05/09/20 21:54 37.3 C 65 18 111/75 05/09/20 21:47 37.1 C 73 18 120/76 05/09/20 21:24 37 C 76 20 104/69 05/09/20 21:09 36.5 C 71 16 109/70 05/09/20 20:52 36.9 C 75 22 96/68 L 05/09/20 19:33 37.3 C 76 18 05/09/20 16:33 36.9 C 74 18 05/09/20 15:26 73 05/09/20 10:54 36.7 C 71 18 05/09/20 07:32 37.0 C 69 17 96/52 L 05/09/20 03:00 36.9 C 77 05/09/20 00:52 36.9 C 77 98/66 L BP Pulse Ox 05/10/20 00:17 98 05/09/20 22:37 100 05/09/20 21:54 100 05/09/20 21:47 100 05/09/20 21:24 100 05/09/20 21:09 100 05/09/20 20:52 100 05/09/20 19:33 113/75 100 05/09/20 16:33 103/75 100 05/09/20 15:26 05/09/20 10:54 104/57 L 97 05/09/20 07:32 88/58 L 97 05/09/20 03:00 98/67 L 99 05/09/20 00:52 99 Pain Intensity Abdomen: Pain Intensity: 2 Transfer of Care Handoff Completed per policy Notes Mental Status: alert / awake / arousable Patient Amnestic to Procedure: Yes Nausea / Vomiting: adequately controlled Pain: adequately controlled Airway Patency, RR, SpO2: stable & adequate BP & HR: stable & adequate Hydration State: stable & adequate Anesthetic Complications: no major complications apparent and Pt Satisfied with anesthetic care Notes: The patient is awake and comfortable. His vital signs are stable.
[2020-05-10] MEDS: HYDROmorphone INJ 1 MG/ML SYRINGE IV PRN ×4 (01:22→07:59)
[2020-05-10 02:15] LABS: Hematocrit (blood only) 23.3 % (42-52); Hemoglobin 8.3 g/dL (14.0-18.0); Mean Corpuscular Hemoglobin 31.2 pg (25-34); Mean Corpuscular Hgb Conc 35.6 g/dL (32-36); Mean Corpuscular Volume 87.6 fL (80-100); Mean Platelet Volume 8.8 fL (7.4-10.4); Platelet Count 177 K/uL (130-400); RDW Coefficient of Variation 14.6 % (11.5-14.5); RDW Standard Deviation 46.6 fL (36.4-46.3); Red Blood Count 2.66 M/uL (4.7-6.1); White Blood Count 5.54 K/uL (4.8-10.8)
[2020-05-10 02:33] LABS: BUN Creatinine Ratio 20.6 (10-20); Calcium 7.7 mg/dl (8.5-10.1); Est GFR (Non-African American) 104.4; Potassium 3.9 mmol/L (3.5-5.1)
[2020-05-10] MEDS: PANTOprazole 40 MG in DEXTROSE 5% 100 ML IV SCH ×5 (02:48→22:20)
[2020-05-10] MEDS: ONDANSETRON INJ 2 MG/ML 2 ML VIAL IV PRN ×3 (04:38→21:28)
[2020-05-10] MEDS: LACTATED RINGER'S 1,000 ML IV SCH (07:45)
--- NOTE | 2020-05-10 08:17 | Fluoroscopy Report ---
[place] ERCP biliary ductal CLINICAL HISTORY: EGD WITH STENT PLACEMENT COMPARISON STUDY: Abdomen and pelvis CT 05/08/2020. FLUOROSCOPY TIME: 3 minutes 11 seconds. FINDINGS: The endoscope is seen within the proximal esophagus. This is followed by placement of a lolita g esophageal stent. The stent appears in good position. IMPRESSION: Fluoroscopy provided for esophageal stent placement. ACT 112: Negative or not required by law. Electronically signed by: Alessio Perez M.D. 05/10/2020 8:16 AM
--- NOTE | 2020-05-10 09:21 | Hospitalist Progress Note ---
Date of Service May 10, 2020 Assessment & Plan (1) Gastrointestinal bleeding, upper: Presented to ED with recurrent UGI bleed; underlying esophageal carcinoma. Recent use of NSAID's, but done for several days. Several episodes of hematemesis day of admission. GI consulted. CT chest evening of 05/09 showed: - large mass distal esophagus - 9 mm focus intraluminal contrast worrisome for extravasation - no apparent aorto-esophageal fistula - distention of proximal esophagus - other nonacute findings as noted Emergent EGD performed by Dr. Maier. - Noted to have large distal mass, distention of esophagus with blood and clots. - Esophageal stent placed. Hgb fell from 11.2 as low as 7.1. Hgb today = 8.3 after 2 unit pRBC. Hemodynamically stable, asymptomatic. No need for additional pRBC's at this time. Transition from IV pantoprazole infusion --> 40 mg IV BID. Follow H/H. (2) Acute blood loss anemia: As noted above. 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 Status post palliative chemotherapy; opted to stop due to side effects. Due for follow-up PET scan soon. May be willing to reconsider aggressive treatment, depending on results of PET and recommendations from Hematology / Oncology. (4) Protein calorie malnutrition: Significant ( > 70 lb ) weight loss due to esophageal Ca. Seen by Survey Supervisor during last hospital stay. Well balanced diet + supplements as tolerated. (5) Cancer associated pain: Intermittent severe epigastric discomfort. Underlying esophageal cancer. Need to avoid NSAID's due to UGI bleed. Acetaminophen offers no significant relief. Trying tramadol for moderate pain + oxycodone for severe pain. Consider long-acting medication with short-acting med for breakthrough pain if that regimen is not effective. IV analgesics PRN when NPO. (6) DVT prophylaxis: No anticoagulants due to GI bleed. SCD's. Ambulate. (7) Discharge planning issues: Anticipated discharged to home. Internal Medicine follow-up with Dr. Alarcon. Hematology / Medical Oncology follow-up with Dr. Reji Garcia. Consider outpatient Palliative Medicine consultation for symptom management and determination of priorities / goals. Admission and Anticipated Discharge Date Admission Date: May 09, 2020 Subjective Recheck for UGI bleed. Patient seen in their room around 0900. at bedside. CT chest last night showed: - large mass distal esophagus - 9 mm focus intraluminal contrast worrisome for extravasation - no apparent aorto-esophageal fistula - distention of proximal esophagus - other nonacute findings as noted Emergent EGD performed by Dr. Maier with placement of esophageal stent. Had some emesis after the procedure. No nausea or vomiting this morning. Large dark bowel movement yesterday, none since. Review of Systems: Constitutional- no fever. Cardiac- no chest pain. Pulmonary- no cough or SOB. GI- as noted above. - no urinary symptoms. Otherwise, as noted above. Physical Exam Constitutional: + cachectic; no acute distress and not ill appearing Eyes: + anicteric sclerae ENMT: external ear and nose normal, oropharynx normal Neck: trachea midline, no thyromegaly Respiratory: no respiratory distress Auscultation: lungs clear to auscultation bilaterally Cardiovascular: Rate/Rhythm: regular rate and regular rhythm Vessels: no JVD Extremities: no calf tenderness and no edema Gastrointestinal (Abdomen): Inspection/Auscultation: normal bowel sounds and + scaphoid; abdomen not distended Percussion/Palpation: abdomen soft; abdomen nontender Musculoskeletal: Extremities: no cyanosis Psychiatric: Orientation: alert and oriented x 3 Results & Data Results & Data ([facility]) Vital Signs (Past 12 Hours) Vital Signs Temp Pulse Pulse Resp BP BP Pulse Ox 05/10/20 08:15 36.7 C 73 18 92/55 L 96 05/10/20 07:47 71 05/10/20 02:39 37.1 C 82 18 110/78 99 05/10/20 01:59 72 05/10/20 01:00 36.5 C 65 14 128/83 100 05/10/20 00:55 36.4 C L 70 14 119/81 99 05/10/20 00:45 69 10 L 116/77 99 05/10/20 00:35 73 16 119/85 100 05/10/20 00:25 64 14 110/70 100 05/10/20 00:17 36.2 C L 78 16 117/75 98 05/09/20 22:37 36.5 C 70 20 115/77 100 05/09/20 21:54 37.3 C 65 18 111/75 100 05/09/20 21:47 37.1 C 73 18 120/76 100 05/09/20 21:24 37 C 76 20 104/69 100 Laboratory Results 05/10/20 02:03 05/10/20 02:03
--- NOTE | 2020-05-10 10:20 | XRay Report ---
XR chest 2V PA/lateral HISTORY: check esophageal stent placement COMPARISON: Chest CT 05/09/2020. FINDINGS: The esophageal stent has completely passed into the stomach. The heart is normal in size. T race bilateral pleural effusions. No pneumothorax. Right jugular central venous catheter terminates i n the SVC. Surgical clip overlying the mid esophagus. Multiple pulmonary nodules are again noted. IMPRESSION: 1. Esophageal stent has completely passed into the stomach. 2. Pulmonary metastatic disease and trace bilateral pleural effusions. 3. These findings were called/faxed to the referring physician following dictation. ACT 112: Negative or not required by law. Electronically signed by: Alessio Perez M.D. 05/10/2020 10:18 AM
[2020-05-10] MEDS: HYDROmorphone INJ 0.5 MG/0.5 ML SYR IV PRN ×3 (11:37→21:28)
[2020-05-10 16:27] LABS: Hematocrit (blood only) 16.2 % (42-52); Hemoglobin 5.7 g/dL (14.0-18.0)
[2020-05-10] MEDS ORDERED: SODIUM CHLORIDE 0.9% 250 ML IV PRN ×2 (16:33→17:43)
[2020-05-10] MEDS ORDERED: PANTOPRAZOLE BOLUS/DRIP 1 EA IV STA (17:42)
--- NOTE | 2020-05-10 18:33 | Discharge Summary ---
Date of Service Date of Admission: 05/08/20 Date of Discharge: 05/10/20 (anticipated) Admission HPI Per Admitting Provider 55 YO male followed by Dr. Alarcon for Internal Medicine and Dr. Reji Garcia for Medical Oncology. 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 Received chemotherapy, but opted to discontinue it because of neuropathy and other side effects. Admitted with UGI bleed on 05/04. Had been taking NSAID for pain. CT at that time demonstrated esophageal mass / thickening, pulmonary lesions, hepatic lesions, mediastinal + retroperitoneal adenopathy. Seen in consultation by GI. Empiric Rx with PPI recommended; EGD not recommended. Received IV pantoprazole infusion. He had no further episodes of hematemesis and remained hemodynamically stable. H/H dropped from 12.6 to 10.3, then remained stable. Discharged to home yesterday on oral PPI. Developed epigastric pain, nausea, vomiting with gross blood around 0600 this morning. His call me and he was advised to come to ED via EMS. 2 additional episodes of grossly bloody hematemesis in ED, one moderate and one small. Pain better after receiving IV hydromorphone. Received IV pantoprazole bolus / infusion. ED provider has contacted GI team. Principal Diagnosis upper GI bleed acute blood loss anemia carcinoma of esophagus Discharge Data Allergies Allergy/AdvReac Type Severity Reaction Status Date / Time No Known Allergies Allergy Unverified 05/08/20 07:51 Consultations 05/08/20 09:45 ED Decision to Admit Stat 05/08/20 10:30 Consult Gastroenterology Routine 05/10/20 17:18 Burn CD for patient Routine Procedures Performed Operation Date: 05/09/20 22:30 Actual Procedures p Esophagogastroduodenoscopy with Stent Placement(Not Applicable) - Irphan E Gaslightwala Ordered Studies 05/08/20 07:09 CT abd pelvis IV con only Stat 05/09/20 [place] ERCP biliary ductal Routine 05/09/20 17:27 CT chest w con Routine Hospital Course (1) Gastrointestinal bleeding, upper: Presented to ED with recurrent UGI bleed; underlying esophageal carcinoma. Recent use of NSAID's, but done for several days. Several episodes of hematemesis day of admission. Received IV pantoprazole bolus / infusion. GI consulted. CT chest evening of 05/09 showed: - large mass distal esophagus - 9 mm focus intraluminal contrast worrisome for extravasation - no apparent aorto-esophageal fistula - distention of proximal esophagus - other nonacute findings as noted Emergent EGD performed by Dr. Maier 05/09. - noted to have large distal mass, distention of esophagus with blood and clots. - esophageal stent placed. Hgb fell from 11.2 as low as 7.1. Hgb morning of 05/10 = 8.3 after 2 units pRBC. Hemodynamically stable, asymptomatic at that time. Chest x-ray morning of 05/10 demonstrated that esophageal stent had migrated to stomach. Pt became lightheaded while ambulating to or from toilet afternoon of 05/10. Orthostatic VS at that time: spine HR 88, BP 97/61 standing HR 125, BP 82/54 Received bolus 500 ml LR. Repeat Hgb at 1606 5.7 (compared to 8.3 earlier). No further hematemesis day of discharge; had 1 stool, but patient did not observe appearance. 2 more units of pRBC's ordered (#'s 3 & 4). Case discussed with GI. Arrangements being made for transfer [place] [facility] [place] tertiary care services. (2) Acute blood loss anemia: As noted above. 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 Status post palliative chemotherapy; opted to stop due to side effects. Due for follow-up PET scan soon. May be willing to reconsider aggressive treatment, depending on results of PET and recommendations from Hematology / Oncology. (4) Protein calorie malnutrition: Significant ( > 70 lb ) weight loss due to esophageal Ca. Seen by [facility] during last hospital stay. Well balanced diet + supplements as tolerated. (5) Cancer associated pain: Intermittent severe epigastric discomfort. Underlying esophageal cancer. Need to avoid NSAID's due to UGI bleed. Acetaminophen offers no significant relief. Trying tramadol for moderate pain + oxycodone for severe pain. Consider long-acting medication with short-acting med for breakthrough pain if that regimen is not effective. IV analgesics PRN when NPO. (6) COVID-19 ruled out: COVID-19 pre-procedure screening performed 05/08/20 at [facility]. SARS-CoV-2 PCR negative. (7) DVT prophylaxis: No anticoagulants due to GI bleed. SCD's. Ambulate. (8) Discharge planning issues: Case discussed with GI at [facility] and [facility] as well as [facility]CM at [facility]. Pt may benefit from tertiary care services (e.g., IR). Recommendations discussed with patient and his . He agrees to the transfer. Accepting [facility] physician Dr. Amaya. Diagnostic imaging pushed to [facility] PACS for their reference. Currently hemodynamically stable. VS @ 1722 - T 36.9, HR 73, RR 16, BP 107/70, O2 sat 98% RA. Internal Medicine follow-up with Dr. Alarcon. Hematology / Medical Oncology follow-up with Dr. Reji Garcia. Consider outpatient Palliative Medicine consultation for symptom management and determination of priorities / goals. RECENT LAB DATA 05/08/20 05/09/20 05/10/20 07:02 19:36 02:03 WBC 5.54 RBC 2.66 L Hgb 7.1 L 8.3 L Hct 20.3 L* 23.3 L MCV 87.6 MCH 31.2 MCHC 35.6 RDW Std Deviation 46.6 H RDW Coeff of Amy 14.6 H Plt Count 177 MPV 8.8 Sodium Potassium Chloride Carbon Dioxide Anion Gap BUN Creatinine Est Cr Clr Drug Dosing Est GFR ( Amer) Est GFR (Non-Af Amer) BUN/Creatinine Ratio Glucose POC Glucose Calcium Blood Type O Positive Antibody Screen NEGATIVE Crossmatch See Detail 05/10/20 05/10/20 05/10/20 02:03 11:43 16:06 WBC RBC Hgb 5.7 L* Hct 16.2 L* MCV MCH MCHC RDW Std Deviation RDW Coeff of Amy Plt Count MPV Sodium 142 Potassium 3.9 Chloride 111 H Carbon Dioxide 26 Anion Gap 5.0 BUN 15 Creatinine 0.73 Est Cr Clr Drug Dosing 77.0 Est GFR ( Amer) 121.0 Est GFR (Non-Af Amer) 104.4 BUN/Creatinine Ratio 20.6 H Glucose 104 H POC Glucose 128 H Calcium 7.7 L Blood Type Antibody Screen Crossmatch Home Medications omeprazole 40 mg PO BID #60 cap 05/07/20 [Rx Confirmed 05/08/20] oxycodone See Rx Instructions .ROUTE .COMPLEX PRN #60 tab 05/07/20 [Rx Confirmed 05/08/20] tramadol See Rx Instructions .ROUTE .COMPLEX PRN #60 tab 05/07/20 [Rx Confirmed 05/08/20] ACTIVE INPATIENT MEDS Heparin Sodium (Porcine) (Heparin 100 Unit/Ml 5ml Flush) 5 ml FLUSH PRN PRN PRN Reason: Flush Stop: 06/08/20 16:09 Hydromorphone HCl (Hydromorphone Inj 0.5 Mg/0.5 Ml Syr) 0.5 mg IV Q2H PRN PRN Reason: pain -03/30 Stop: 05/22/20 10:29 Last Admin: 05/10/20 18:21 Dose: 0.5 mg Documented by: Hydromorphone HCl (Hydromorphone Inj 1 Mg/Ml Syringe) 1 mg IV Q2H PRN PRN Reason: severe pain Stop: 05/23/20 17:43 Last Admin: 05/10/20 07:59 Dose: 1 mg Documented by: Lactated Ringer's (Lr) 1,000 mls @ 80 mls/hr IV .[id number] JUAN Stop: 06/08/20 19:44 Last Infusion: 05/10/20 17:00 Dose: 0 mls/hr Documented by: Lactated Ringer's (Lr) 1,000 mls @ 999 mls/hr IV .[id number] PRN PRN Reason: sys BP < 90 Last Infusion: 05/10/20 16:45 Dose: Infused Documented by: Pantoprazole Sodium 40 mg/ (Dextrose) 100 mls @ 20 mls/hr IV Q5H JUAN Stop: 06/09/20 17:57 Last Admin: 05/10/20 18:20 Dose: 8 mg/hr, 20 mls/hr Documented by: Sodium Chloride (Nss) 250 mls @ 15 mls/hr IV .[id number] PRN PRN Reason: For Transfusion Stop: 05/11/20 03:44 Ondansetron HCl (Ondansetron Inj 2 Mg/Ml 2 Ml Vial) 4 mg IV Q6H PRN PRN Reason: Nausea Stop: 06/07/20 10:29 Last Admin: 05/10/20 11:07 Dose: 4 mg Documented by: Total Time Total Time Spent Total Time Spent (In Minutes): 60 Discharge Plan Discharge Items Patient Disposition: Transfer Acute Care Hospital Reason For Visit: UGI BLEED Discharge Diagnosis: UGI bleed, esophageal Ca Activity: As commented below Activity Comment: As tolerated with assistance. Non-emergency contact: Primary Care Provider, Hospitalist and Tongue Binder Call non-emergency contact if: you have any medication questions Follow-up/Referrals: Crow Alarcon MD [Primary Care Provider] - Diet: Nothing by Mouth Addtl Attending Provider Instructions: DIET: NPO VTE PROPHYLAXIS: SCD's Keep head of bed elevated 30 degrees. Diagnostic images sent to [facility] PACS. Also burned to CD or DVD to accompany patient. SARS-CoV-2 PCR negative 05/08/20 (pre-procedure screening, no symptoms or known exposure) Please refer to end of hospital course in discharge summary for current outpatient / inpatient meds. Thank you for receiving this patient in transfer. Please call or TigerText if you have any questions. Rey Deleon Pending Studies at Discharge: No Stand-Alone Forms: My [facility] Skilled Items Patient informed of condition?: Yes DNR: No Discharge Level of Care: Other Communicable Disease: No Discharge Prognosis: Stable Lines: Peripheral IV Urinary Catheter: No Medications and DC Order Prescriptions: Discontinued oxycodone 5 mg Tablet See Rx Instructions .ROUTE .COMPLEX PRN (Reason: pain) Qty: 60 RF: 0 tramadol 50 mg Tablet See Rx Instructions .ROUTE .COMPLEX PRN (Reason: pain) Qty: 60 RF: 0 omeprazole 40 mg capsule,delayed release(DR/EC) 40 mg PO BID Qty: 60 RF: 5 Discharge Orders: Discharge Order (Routine); Ordered 05/10/20 Ordered By: Rey Deleon Admission Data Admit Date/Time: 05/09/20 07:22 Attending Provider: Rey Deleon Admit Provider: Rey Deleon Primary Care Provider: Crow Alarcon Other Providers: [facility],Home Healthcare ; Rey Deleon ; Sudhir Ramon
[2020-05-10] MEDS ORDERED: PANTOprazole 40 MG in SYRINGE 0 ML IV SCH (21:00)
== END 2020-05-10 23:01 | disposition short-term general hospital (02) | DRG 378 ==
LOC: 2E 06:34 → ED 06:34 → 2E 09:57